=== PATIENT | female | born 1965 | race African-American/Black ===

== ENCOUNTER 2020-02-24 07:12 | Outpatient (REF) | payer MEDICARE, MEDICAID, SELFPAY ==
[2020-02-24 11:37] LABS: Estimated Average Glucose 154 mg/dL
[2020-02-24 12:07] LABS: Creatinine Urine 124.05 mg/dL; Microalbum/Creatinine Ratio Ur 152.3 ug/mg cr
[2020-02-24 12:09] LABS: Alanine Aminotransferase 20 U/L (0-31); Albumin Level 4.4 g/dL (3.5-5.0); Alkaline Phosphatase 54 U/L (39-117); Anion Gap 14 (12-20); Aspartate Amino Transferase 19 U/L (5-31); Bilirubin Total 0.5 mg/dL (0.0-1.0); Blood Urea Nitrogen 24 mg/dL (9-16); Calcium 9.4 mg/dL (8.4-10.2); Carbon Dioxide 27 mmol/L (22-29); Chloride 106 mmol/L (96-108); Cholesterol 135 mg/dL; Estimated Glomerular Filt Rate 42; Glucose Fasting 130 mg/dL (60-99); HDL Cholesterol 42 mg/dL; LDL Cholesterol Calculated 67 mg/dl; Potassium 4.6 mmol/l (3.3-5.1); Sodium 142 mmol/L (135-145); Total Protein 7.3 g/dL (6.5-8.0); Triglycerides 132 mg/dL
== END 2020-02-24 07:13 | disposition home or self-care (01) ==
LOC: HO.HMGCLDS 07:12
PROVIDERS: PCP Internal Medicine; Visit Provider Internal Medicine
DX: E03.9 Hypothyroidism, unspecified (principal); E11.9 Type 2 diabetes mellitus without complications; I10 Essential (primary) hypertension
CPT/HCPCS: 80053; 80061; 82043; 83036

== ENCOUNTER 2020-05-02 10:07 | Outpatient (REF) | payer MEDICARE, MEDICAID, SELFPAY ==
[2020-05-02 11:43] LABS: Glucose Urine UA NEG (NEG); Leukocyte Esterase Urine 3+ (NEG); Nitrite Urine POS (NEG); Specific Gravity - Urine 1.025 (1.005-1.025); Urine Blood 3+ (NEG); Urine Ketones NEG (NEG); Urine Protein 1+ MG/DL (NEG-TRACE)
[2020-05-02 11:46] LABS: Appearance Urine CLOUDY; Color Urine YELLOW
[2020-05-02 12:05] LABS: Bacteria Urine 3+ /LPF; Squamous Epithelial Cell Urine 1+ /LPF
== END 2020-05-02 10:08 | disposition home or self-care (01) ==
LOC: HO.HMGCLDS 10:07
PROVIDERS: PCP Internal Medicine; Visit Provider Internal Medicine
DX: R30.0 Dysuria (principal); D50.9 Iron deficiency anemia, unspecified; E03.9 Hypothyroidism, unspecified; I10 Essential (primary) hypertension; E11.9 Type 2 diabetes mellitus without complications
CPT/HCPCS: 81001; 87086; 87088; 87186

== ENCOUNTER 2020-07-13 12:13 | Outpatient (REF) | payer MEDICARE, MEDICAID, SELFPAY ==
[2020-07-13 13:49] LABS: Glucose Urine UA NEG (NEG); Leukocyte Esterase Urine 3+ (NEG); Nitrite Urine NEG (NEG); PH 5.5 (5.0-8.0); Specific Gravity - Urine 1.025 (1.005-1.025); Urine Blood 2+ (NEG); Urine Ketones NEG (NEG); Urine Protein 1+ MG/DL (NEG-TRACE)
[2020-07-13 13:58] LABS: Appearance Urine CLOUDY; Color Urine YELLOW
[2020-07-13 14:09] LABS: Bacteria Urine 3+ /LPF; Squamous Epithelial Cell Urine TRACE /LPF; WBC Urine 50-75 /HPF (0-4)
== END 2020-07-13 12:14 | disposition home or self-care (01) ==
LOC: HO.LAB 12:13
PROVIDERS: PCP Internal Medicine; Visit Provider Urology
DX: R30.0 Dysuria (principal)
CPT/HCPCS: 81001; 87086; 87088; 87186

== ENCOUNTER 2020-07-18 08:45 | Outpatient (REF) | payer MEDICARE, MEDICAID, SELFPAY ==
[2020-07-18 11:13] LABS: MANUAL DIFF FLAG NO
[2020-07-18 11:42] LABS: Glucose Urine UA NEG (NEG); Leukocyte Esterase Urine 2+ (NEG); Nitrite Urine NEG (NEG); PH 5.5 (5.0-8.0); Specific Gravity - Urine >= 1.030 (1.005-1.025); UACC Culture Trigger YES; Urine Blood 3+ (NEG); Urine Ketones NEG (NEG); Urine Protein 1+ MG/DL (NEG-TRACE)
[2020-07-18 11:43] LABS: Basophils Percent Auto 0.5 % (0-2); Eosinophils Absolute Auto 0.1 X10*3/uL (0.0-0.4); Eosinophils Percent Auto 3.5 % (0-4); Hematocrit 36.1 % (37-47); Hemoglobin 11.6 g/dl (12.0-16.0); Imm Gran Abs Auto 0.02 X10*3/uL (0.00-0.03); Imm Gran Pct Auto 0.5 % (0.0-0.4); Lymphocytes Absolute Auto 0.9 X10*3/uL (1.2-4.9); Lymphocytes Percent Auto 23.4 % (20-40); Mean Corpuscular HGB Conc 32.1 g/dl (31.0-35.0); Mean Corpuscular Hemoglobin 31.1 pg (27.0-33.0); Mean Corpuscular Volume 96.8 fL (80-98); Mean Platelet Volume 10.8 fL (9.4-12.3); Monocytes Absolute Auto 0.5 X10*3/uL (0.1-1.2); Monocytes Percent Auto 11.5 % (2-11); Neutrophils Absolute Auto 2.4 X10*3/uL (2.0-8.3); Neutrophils Percent Auto 60.6 % (45-73); Platelet Count 284 X10*3/uL (160-400); Red Blood Count 3.73 X10*6/uL (4.20-5.50); Red Cell Distribution Width 12.4 % (11.0-16.0)
[2020-07-18 11:44] LABS: Appearance Urine CLOUDY; Color Urine YELLOW
[2020-07-18 11:49] LABS: Amorphous Sediment Urine 1+ /LPF; Bacteria Urine 1+ /LPF; Mucus Urine 2+ /LPF; Squamous Epithelial Cell Urine 1+ /LPF; UACC CULT YES; WBC Urine TNTC /HPF (0-4)
[2020-07-18 11:55] LABS: Alanine Aminotransferase 21 U/L (0-31); Albumin Level 4.4 g/dL (3.5-5.0); Alkaline Phosphatase 67 U/L (39-117); Anion Gap 15 (12-20); Aspartate Amino Transferase 21 U/L (5-31); Bilirubin Total 0.4 mg/dL (0.0-1.0); Blood Urea Nitrogen 18 mg/dL (9-16); Calcium 9.2 mg/dL (8.4-10.2); Carbon Dioxide 27 mmol/L (22-29); Chloride 106 mmol/L (96-108); Cholesterol 118 mg/dL; Estimated Glomerular Filt Rate 49; Glucose Fasting 116 mg/dL (60-99); HDL Cholesterol 33 mg/dL; Iron 54 mcg/dL (30-160); LDL Cholesterol Calculated 59 mg/dl; Percent Iron Saturation 16 % (15-50); Potassium 4.6 mmol/L (3.3-5.1); Sodium 143 mmol/L (135-145); Total Iron Binding Capacity 337 mcg/dL (228-428); Total Protein 7.4 g/dL (6.5-8.0); Triglycerides 130 mg/dL; Unsaturated Iron Binding 283 ug/dL
[2020-07-18 11:58] LABS: TSH reflex Free T4 0.75 uIU/mL (0.32-4.0)
[2020-07-18 12:27] LABS: Uric Acid 5.3 mg/dL (2.4-5.7)
== END 2020-07-18 08:46 | disposition home or self-care (01) ==
LOC: HO.HMGCLDS 08:45
PROVIDERS: PCP Internal Medicine; Visit Provider Internal Medicine
DX: D50.9 Iron deficiency anemia, unspecified (principal); R30.0 Dysuria; E03.9 Hypothyroidism, unspecified; I10 Essential (primary) hypertension; E11.9 Type 2 diabetes mellitus without complications
CPT/HCPCS: 36415; 80053; 80061; 81001; 83540; 84443; 84550; 85025; 87086; 87088; 87186

== ENCOUNTER 2020-11-25 09:59 | Outpatient (REF) | payer MEDICARE, MEDICAID, SELFPAY ==
[2020-11-25 11:31] LABS: Glucose Urine UA NEG (NEG); Leukocyte Esterase Urine 2+ (NEG); Nitrite Urine POS (NEG); PH 5.5 (5.0-8.0); Specific Gravity - Urine 1.025 (1.005-1.025); UACC Culture Trigger YES; Urine Blood 3+ (NEG); Urine Ketones 5 MG/DL (NEG); Urine Protein 2+ MG/DL (NEG-TRACE)
[2020-11-25 11:41] LABS: Appearance Urine TURBID; Color Urine BROWN
[2020-11-25 11:43] LABS: Bacteria Urine 3+ /LPF; Squamous Epithelial Cell Urine 1+ /LPF; WBC Urine TNTC /HPF (0-4)
== END 2020-11-25 10:00 | disposition home or self-care (01) ==
LOC: HO.HMGCLDS 09:59
PROVIDERS: PCP Internal Medicine; Visit Provider Internal Medicine
DX: R31.9 Hematuria, unspecified (principal)
CPT/HCPCS: 81001; 81003; 87086; 87088; 87186

== ENCOUNTER 2020-12-12 12:15 | Outpatient (REF) | payer MEDICARE, MEDICAID, SELFPAY ==
--- NOTE | ~2020-12-12 | XR_ITS ---
EXAMINATION: LEFT FOOT, LEFT KNEE. LEFT TIBIA AND FIBULA. CLINICAL INFORMATION: Injury. Left foot, left tibia and fibula and left knee pain. COMPARISON: None TECHNIQUE: 3 views left foot, 2 views left tibia and fibula. 3 knee 4 views. FINDINGS: Left foot: There is no visible acute fracture, dislocation or subluxation seen. Ankle mortise and subtalar joints are normal. There is a small calcaneal heel spur. There is mild distal dorsal foot soft tissue swelling. Left tibia and fibula: There is no visible acute fracture, dislocation or subluxation seen. The soft tissues are normal. Left knee: There is mild reduction in the medial and the patellofemoral compartment joint space with periarticular spurring. No visible acute fracture, dislocation or lytic process. There is mild suprapatellar joint effusion. XR/XR knee LT 4V IMPRESSION: There is a small calcaneal spur. Minimal distal dorsal foot soft tissue swelling. No acute fractures seen. Unremarkable left tibia and fibula. Mild degenerative changes medial and patellofemoral compartments left knee.
--- NOTE | ~2020-12-12 | XR_ITS ---
EXAMINATION: LEFT FOOT, LEFT KNEE. LEFT TIBIA AND FIBULA. CLINICAL INFORMATION: Injury. Left foot, left tibia and fibula and left knee pain. COMPARISON: None TECHNIQUE: 3 views left foot, 2 views left tibia and fibula. 3 knee 4 views. FINDINGS: Left foot: There is no visible acute fracture, dislocation or subluxation seen. Ankle mortise and subtalar joints are normal. There is a small calcaneal heel spur. There is mild distal dorsal foot soft tissue swelling. Left tibia and fibula: There is no visible acute fracture, dislocation or subluxation seen. The soft tissues are normal. Left knee: There is mild reduction in the medial and the patellofemoral compartment joint space with periarticular spurring. No visible acute fracture, dislocation or lytic process. There is mild suprapatellar joint effusion. XR/XR tibia fibula LT 2V IMPRESSION: There is a small calcaneal spur. Minimal distal dorsal foot soft tissue swelling. No acute fractures seen. Unremarkable left tibia and fibula. Mild degenerative changes medial and patellofemoral compartments left knee.
--- NOTE | ~2020-12-12 | XR_ITS ---
EXAMINATION: LEFT FOOT, LEFT KNEE. LEFT TIBIA AND FIBULA. CLINICAL INFORMATION: Injury. Left foot, left tibia and fibula and left knee pain. COMPARISON: None TECHNIQUE: 3 views left foot, 2 views left tibia and fibula. 3 knee 4 views. FINDINGS: Left foot: There is no visible acute fracture, dislocation or subluxation seen. Ankle mortise and subtalar joints are normal. There is a small calcaneal heel spur. There is mild distal dorsal foot soft tissue swelling. Left tibia and fibula: There is no visible acute fracture, dislocation or subluxation seen. The soft tissues are normal. Left knee: There is mild reduction in the medial and the patellofemoral compartment joint space with periarticular spurring. No visible acute fracture, dislocation or lytic process. There is mild suprapatellar joint effusion. XR/XR foot LT min 3V IMPRESSION: There is a small calcaneal spur. Minimal distal dorsal foot soft tissue swelling. No acute fractures seen. Unremarkable left tibia and fibula. Mild degenerative changes medial and patellofemoral compartments left knee.
== END 2020-12-12 12:16 | disposition home or self-care (01) ==
LOC: HO.HMGCX 12:15
PROVIDERS: PCP Internal Medicine; Visit Provider Nurse Practitioner Family
DX: S99.922D Unspecified injury of left foot, subsequent encounter (principal); S89.92XD Unspecified injury of left lower leg, subsequent encounter
CPT/HCPCS: 73564; 73590; 73630

== ENCOUNTER 2021-03-02 11:24 | Outpatient (REF) | payer MEDICARE, MEDICAID, SELFPAY ==
[2021-03-02 14:04] LABS: Hematocrit 34.4 % (37-47); Mean Corpuscular Hemoglobin 29.9 pg (27.0-33.0); Mean Corpuscular Volume 93.5 fL (80-98); Mean Platelet Volume 10.7 fL (9.4-12.3); Platelet Count 316 X10*3/uL (160-400); Red Blood Count 3.68 X10*6/uL (4.20-5.50); Red Cell Distribution Width 12.7 % (11.0-16.0); White Blood Count 6.6 X10*3/uL (4.8-10.8)
[2021-03-02 14:11] LABS: Estimated Average Glucose 151 mg/dL; Hemoglobin A1c % 6.9 %
[2021-03-02 14:22] LABS: Alanine Aminotransferase 19 U/L (0-31); Albumin Level 4.2 g/dL (3.5-5.0); Alkaline Phosphatase 60 U/L (39-117); Anion Gap 14 (12-20); Aspartate Amino Transferase 20 U/L (5-31); Bilirubin Total 0.5 mg/dL (0.0-1.0); Blood Urea Nitrogen 15 mg/dL (9-16); Calcium 9.6 mg/dL (8.4-10.2); Carbon Dioxide 24 mmol/L (22-29); Chloride 110 mmol/L (96-108); Cholesterol 114 mg/dL; Estimated Glomerular Filt Rate 54; Glucose Fasting 105 mg/dL (60-99); HDL Cholesterol 34 mg/dL; LDL Cholesterol Calculated 59 mg/dl; Potassium 4.1 mmol/L (3.3-5.1); Sodium 144 mmol/L (135-145); Total Protein 7.2 g/dL (6.5-8.0); Triglycerides 107 mg/dL
[2021-03-02 14:44] LABS: Vitamin D 25-OH Total 60.5 ng/mL (>30)
[2021-03-02 16:54] LABS: Creatinine Urine 127.43 mg/dL; Microalbum/Creatinine Ratio Ur 207.1 ug/mg cr
== END 2021-03-02 11:25 | disposition home or self-care (01) ==
LOC: HO.HMGCLDS 11:24
PROVIDERS: PCP Internal Medicine; Visit Provider Internal Medicine
DX: I12.9 Hypertensive chronic kidney disease with stage 1 through stage 4 chronic kidney disease, or unspecified chronic kidney disease (principal); N18.30 Chronic kidney disease, stage 3 unspecified; E11.22 Type 2 diabetes mellitus with diabetic chronic kidney disease; E78.5 Hyperlipidemia, unspecified
CPT/HCPCS: 36415; 80053; 80061; 82043; 82306; 83036; 85027

== ENCOUNTER 2021-07-07 07:00 | Day surgery (SDC) | payer MEDICARE, MEDICAID, SELFPAY ==
--- NOTE | 2021-07-06 10:02 | HO.ANESPROP2 ---
Documented by User: Kati Salazar NP 07/06/21 10:03 HPI - Anesthesia Eval Consult details Narrative: 56yo F for Colonoscopy Recent R shoulder sprain *Multiple Med Allergies* PMFSH Active Problems Active Problems: All Active Problems (Updated 05/19/21 @ 13:58 by Denisse Tripp, RN) Toe injury (Acute) Leg injury (Acute) Knee injury (Acute) Fall (Acute) Overweight (Acute) Annual physical exam (Acute) Normal Pap smear (Acute) Hematuria (Acute) Hypothyroidism (Acute) CKD (chronic kidney disease), stage III (Acute) Diabetes (Acute) Hypertension (Acute) Hyperlipidemia (Acute) Nephrolithiasis (Acute) Dysuria (Acute) Past Medical History Medical History (Updated 07/07/21 @ 07:21 by Lamar Ding, RN) Annual physical exam Arthritis Back pain CKD (chronic kidney disease), stage III Diabetes Dysuria Fibromyalgia Hematuria Hepatitis C History of mammogram History of MRSA infection Hx of hepatitis C Hyperlipidemia Hypertension Hypothyroidism Iron deficiency anemia Nephrolithiasis Normal Pap smear On beta evita at home Overweight Restless leg syndrome Family History Family History Father No problems noted. Mother HTN (hypertension) Diabetes mellitus Maternal Grandmother HTN (hypertension) Diabetes mellitus Stroke Surgical History Surgical History H/O colonoscopy History of kidney stones Hx of cholecystectomy Social History Social History Housing: House Alcohol intake: never Patient Tobacco Use Status: Never used Tobacco e-Cigarette/Vaping Use: Never Used Use of substances other than those prescribed or required for medical reasons: No Are you DNR?: No Advance Directives: No Advance Directives Information Provided: Yes Current occupational status: disabled Meds Allergies Allergy/AdvReac Type Severity Reaction Status Date / Time liraglutide [From VICTOZA] Allergy Intermediate VOMITING Verified 07/07/21 07:19 carvedilol Allergy Unknown doesn't Verified 07/07/21 07:[address] it makes her feel Sulfa (Sulfonamide Allergy Unknown vomiting Verified 07/07/21 07:19 Antibiotics) sulfamethoxazole Allergy Unknown VOMITIMG Verified 07/07/21 07:19 [From BACTRIM] trimethoprim [From BACTRIM] Allergy Unknown VOMITIMG Verified 07/07/21 07:19 amlodipine AdvReac Unknown Feet Verified 07/07/21 07:19 swelling clonidine AdvReac Unknown Dry mouth Verified 07/07/21 07:19 Home Medications Medication Instructions Recorded Confirmed Last Taken Type aspirin 81 mg tablet,delayed 81 mg PO DAILY 04/20/20 05/19/21 Unknown History release docusate sodium 100 mg capsule 200 mg PO BEDTIME 04/20/20 05/19/21 Unknown History ferrous sulfate 325 mg (65 mg 325 mg PO DAILY 04/20/20 05/19/21 Unknown History iron) tablet insulin glargine 100 unit/mL (3 35 unit SUBCUT DAILY 04/20/20 05/19/21 Unknown History mL) subcutaneous pen metformin 500 mg tablet,extended 1,000 mg PO BID 04/20/20 05/19/21 Unknown History release 24 hr estradiol 10 mcg vaginal tablet 10 mcg VAGINAL 2XW 08/24/20 05/19/21 Unknown History methenamine hippurate 1 gram tablet 1 g PO QAM 08/24/20 05/19/21 Unknown History blood sugar diagnostic #10 ea 11/25/20 03/01/21 Unknown History pen needle, diabetic 31 gauge x #50 ea 11/25/20 03/01/21 Unknown History 07/26 Exam Exam Date and Time: July 06, 2021 1002 Pertinent Lab Results Pertinent Lab Results: Laboratory Tests 03/02/21 03/02/21 11:30 11:30 WBC 6.6 Hgb 11.0 L Hct 34.4 L Plt Count 316 Sodium 144 Potassium 4.1 Chloride 110 H Carbon Dioxide 24 BUN 15 Creatinine 1.06 Assessment and Plan Assessment Anesthesia Assessment: Chart Reviewed Documented by User: Ashish Hooks MD 07/07/21 08:16 [facility] Past Medical History Medical History (Updated 07/07/21 @ 07:21 by Lamar Ding RN) Annual physical exam Arthritis Back pain CKD (chronic kidney disease), stage III Diabetes Dysuria Fibromyalgia Hematuria Hepatitis C History of mammogram History of MRSA infection Hx of hepatitis C Hyperlipidemia Hypertension Hypothyroidism Iron deficiency anemia Nephrolithiasis Normal Pap smear On beta evita at home Overweight Restless leg syndrome Patient : No Family History Family History Father No problems noted. Mother HTN (hypertension) Diabetes mellitus Maternal Grandmother HTN (hypertension) Diabetes mellitus Stroke Family history of problems with anesthesia: No Surgical History Surgical History H/O colonoscopy History of kidney stones Hx of cholecystectomy History of Problems with Anesthesia: No Social History Social History Housing: House Alcohol intake: never Patient Tobacco Use Status: Never used Tobacco e-Cigarette/Vaping Use: Never Used Use of substances other than those prescribed or required for medical reasons: No Are you DNR?: No Advance Directives: No Advance Directives Information Provided: Yes Current occupational status: disabled Meds Allergies Allergy/AdvReac Type Severity Reaction Status Date / Time liraglutide [From VICTOZA] Allergy Intermediate VOMITING Verified 07/07/21 07:19 carvedilol Allergy Unknown doesn't Verified 07/07/21 07:[address] it makes her feel Sulfa (Sulfonamide Allergy Unknown vomiting Verified 07/07/21 07:19 Antibiotics) sulfamethoxazole Allergy Unknown VOMITIMG Verified 07/07/21 07:19 [From BACTRIM] trimethoprim [From BACTRIM] Allergy Unknown VOMITIMG Verified 07/07/21 07:19 amlodipine AdvReac Unknown Feet Verified 07/07/21 07:19 swelling clonidine AdvReac Unknown Dry mouth Verified 07/07/21 07:19 Home Medications Medication Instructions Recorded Confirmed Last Taken Type aspirin 81 mg tablet,delayed 81 mg PO DAILY 04/20/20 05/19/21 Unknown History release docusate sodium 100 mg capsule 200 mg PO BEDTIME 04/20/20 05/19/21 Unknown History ferrous sulfate 325 mg (65 mg 325 mg PO DAILY 04/20/20 05/19/21 Unknown History iron) tablet insulin glargine 100 unit/mL (3 35 unit SUBCUT DAILY 04/20/20 05/19/21 Unknown History mL) subcutaneous pen metformin 500 mg tablet,extended 1,000 mg PO BID 04/20/20 05/19/21 Unknown History release 24 hr estradiol 10 mcg vaginal tablet 10 mcg VAGINAL 2XW 08/24/20 05/19/21 Unknown History methenamine hippurate 1 gram tablet 1 g PO QAM 08/24/20 05/19/21 Unknown History blood sugar diagnostic #10 ea 11/25/20 03/01/21 Unknown History pen needle, diabetic 31 gauge x #50 ea 11/25/20 03/01/21 Unknown History 07/26 Exam Airway Mallampati Class: I TM Dist: >3cm Neck ROM: Full Loose/Missing/Broken Teeth: No Heart: ok Lungs: ok Assessment and Plan Final Anesthetic Review Family History of Problems with Anesthesia: No History of Problems with Anesthesia: No NPO: Yes ASA Class: II Final Preanesthetic Review: No Changes in Pt Med Stat, Meds/Allgs Chart Reviewed, Consent Obtained/Reviewed and Anes Risks/Benef Reviewed Patient Risk: Intermediate Procedure Risk: Low Anesthetic Plan Anesthetic Plan: MAC: and Agree w/ Assess. and Plan Disposition: Standard PACU
[2021-07-07 07:25] VITALS: BMI 38.0
[2021-07-07 07:43] VITALS: BP 132/68; PULSE 68; RESP 16; TEMP 36.4; O2SAT 99
[2021-07-07] MEDS: Lactated Ringers 1,000 ML 100 ML IVCONT (08:00)
--- NOTE | 2021-07-07 08:12 | MHC.SHP ---
Pre-Procedural Eval Section A Date of Service: 07/07/21 Section B Chief Complaint: change in habits Details of Present Illness: see h&p no changes Relevant Family History (Specify if Yes): No Relevant Social History: None Present Medications: see Short Stay [facility] assessment Medical History: No relevant PMH History of Previous Operations: No relevant previous surgery Allergies: Allergies Allergy/AdvReac Type Severity Reaction Status Date / Time liraglutide [From VICTOZA] Allergy Intermediate VOMITING Verified 07/07/21 07:19 carvedilol Allergy Unknown doesn't Verified 07/07/21 07:[address] it makes her feel Sulfa (Sulfonamide Allergy Unknown vomiting Verified 07/07/21 07:19 Antibiotics) sulfamethoxazole Allergy Unknown VOMITIMG Verified 07/07/21 07:19 [From BACTRIM] trimethoprim [From BACTRIM] Allergy Unknown VOMITIMG Verified 07/07/21 07:19 amlodipine AdvReac Unknown Feet Verified 07/07/21 07:19 swelling clonidine AdvReac Unknown Dry mouth Verified 07/07/21 07:19 Review of Systems Sugical H&P ROS: Negative: Constitution, Cardiovascular, Respiratory, Neurological, Psychiatric, Hem-Onc, Allergic/Immunologic, Gastrointestinal, Genitourinary, Musculoskeletal, Integumentary, Endocrine and Eyes/Ears/Nose/Throat Exam Surgical H&P Exam: Normal: HEENT, Normal: Heart, Normal: Lungs, Normal: Extremities, Normal: Abdomen, Normal: Skin and Normal: Neurological Plan Diagnosis/Plan: Unchanged I have reviewed the history and physical and performed a pertinent physical examination on my patient. No changes have occurred unless specified.
[2021-07-07 08:29] LABS: Glucose, Whole Blood 131 mg/dL (60-115)
--- NOTE | 2021-07-07 09:03 | PM.OP ---
Brief Operative Note Date of Service: 07/07/21 Pre-op diagnosis: change in bowel habits Post-op diagnosis: same (colon polyps) Surgeon: Vargas García Anesthesia: MAC Was an [employer] used for this Procedure?: No Estimated blood loss (mL): 5 Pathology: other (bxs, ti, r colon rectosigmoid, polyps 20cm and rectum.) Condition: stable Disposition: PACU
[2021-07-07 09:13] VITALS: BP 116/66; PULSE 61; RESP 16; TEMP 36.3; O2SAT 100
--- NOTE | 2021-07-07 09:51 | OP_ITS ---
SURGEON: Vargas García MD INDICATIONS: Change in bowel habits. PREOPERATIVE DIAGNOSIS: POSTOPERATIVE DIAGNOSIS: PROCEDURE PERFORMED: Colonoscopy to the terminal ileum with biopsy and snare polypectomy. ESTIMATED BLOOD LOSS: COMPLICATIONS: ANESTHESIA: ASSISTANTS: SPECIMENS: MEDICATIONS: Monitored anesthesia care. DESCRIPTION OF PROCEDURE: History and physical were performed. The risks and benefits of the procedure were explained to the patient. Informed consent was obtained and the patient placed in the left lateral decubitus position. A digital rectal exam was performed and was found to be normal. The Olympus pediatric video colonoscope was introduced into the rectum and advanced to the cecum without difficulty. The cecum was identified by transillumination, palpation, and identification of the ileocecal valve. Examination was performed. The scope was removed. She tolerated the procedure well and was transferred to recovery area in stable condition. FINDINGS: The terminal ileum was normal. The visualized colonic mucosa was normal. The quality of the prep was good. There was moderate sigmoid diverticulosis. There was no evidence of colitis or Crohn disease. A single polyp at the 20 cm li measuring 10 mm was removed with a snare and recovered via suction. A rectal polyp measuring less than 5 mm was removed with biopsy forceps. Random biopsies were obtained from the terminal ileum, the right colon, and the rectosigmoid. Retroflexed examination showed internal hemorrhoids that were moderate in size. The quality of the prep was good. IMPRESSION: Colon polyps. RECOMMENDATION: Follow up the biopsy results. MD KENNEDY Friedman/CECILL / [id number]
== END 2021-07-07 09:38 | disposition home or self-care (01) ==
PROVIDERS: PCP Internal Medicine; Visit Provider Internal Medicine Gastroenterology
PROC: 0DJD8ZZ Inspection of Lower Intestinal Tract, Via Natural or Artificial Opening Endoscopic (ICD-10-PCS; CPT 45378; principal; 2021-07-07 08:40)
DX: R19.4 Change in bowel habit (principal); Z86.010 Personal history of colon polyps; K51.40 Inflammatory polyps of colon without complications; K62.1 Rectal polyp; K57.30 Diverticulosis of large intestine without perforation or abscess without bleeding; K64.8 Other hemorrhoids; K58.9 Irritable bowel syndrome, unspecified; Z87.19 Personal history of other diseases of the digestive system; B18.2 Chronic viral hepatitis C; I25.10 Atherosclerotic heart disease of native coronary artery without angina pectoris; E11.22 Type 2 diabetes mellitus with diabetic chronic kidney disease; I12.9 Hypertensive chronic kidney disease with stage 1 through stage 4 chronic kidney disease, or unspecified chronic kidney disease; N18.30 Chronic kidney disease, stage 3 unspecified; Z79.4 Long term (current) use of insulin; Z79.82 Long term (current) use of aspirin; Z79.899 Other long term (current) drug therapy; Z88.2 Allergy status to sulfonamides; Z88.8 Allergy status to other drugs, medicaments and biological substances; Z87.442 Personal history of urinary calculi
CPT/HCPCS: 45385; 45380; 82947; 88305; J3010

== ENCOUNTER 2021-09-28 09:43 | Outpatient (REF) | payer MEDICARE, MEDICAID, SELFPAY ==
[2021-09-28 11:31] LABS: Hematocrit 34.1 % (37.0-47.0); Hemoglobin 10.5 g/dl (12.0-16.0); Mean Corpuscular HGB Conc 30.8 g/dl (31.0-35.0); Mean Corpuscular Hemoglobin 29.5 pg (27.0-33.0); Mean Corpuscular Volume 95.8 fL (80.0-98.0); Mean Platelet Volume 9.3 fL (9.4-12.3); Platelet Count 391 X10*3/uL (160-400); Red Blood Count 3.56 X10*6/uL (4.20-5.50); Red Cell Distribution Width 13.6 % (11.0-16.0); White Blood Count 9.2 X10*3/uL (4.8-10.8)
[2021-09-28 12:10] LABS: Alanine Aminotransferase 26 U/L (0-31); Alkaline Phosphatase 71 U/L (39-117); Anion Gap 16 (12-20); Aspartate Amino Transferase 16 U/L (5-31); Bilirubin Total 0.6 mg/dL (0.0-1.0); Blood Urea Nitrogen 18 mg/dL (9-16); C Reactive Protein 0.78 mg/dL (< or = 0.50); Calcium 9.9 mg/dL (8.4-10.2); Carbon Dioxide 24 mmol/L (22-29); Chloride 106 mmol/L (96-108); Estimated Glomerular Filt Rate 42; Glucose Random 98 mg/dL (60-115); Sodium 141 mmol/L (135-145); Total Protein 7.6 g/dL (6.5-8.0)
== END 2021-09-28 09:44 | disposition home or self-care (01) ==
LOC: HO.HMGCLDS 09:43
PROVIDERS: PCP Internal Medicine; Visit Provider Internal Medicine
DX: I12.9 Hypertensive chronic kidney disease with stage 1 through stage 4 chronic kidney disease, or unspecified chronic kidney disease (principal); N18.30 Chronic kidney disease, stage 3 unspecified; E11.22 Type 2 diabetes mellitus with diabetic chronic kidney disease; R19.7 Diarrhea, unspecified
CPT/HCPCS: 36415; 80053; 85027; 86140

== ENCOUNTER 2021-09-29 10:40 | Outpatient (REF) | payer MEDICARE, MEDICAID, SELFPAY ==
[2021-09-29 16:51] LABS: CDiff Gene PCR NEGATIVE (Negative)
== END 2021-09-29 10:41 | disposition home or self-care (01) ==
LOC: HO.HMGCLNP 10:40
PROVIDERS: Visit Provider Internal Medicine
DX: I12.9 Hypertensive chronic kidney disease with stage 1 through stage 4 chronic kidney disease, or unspecified chronic kidney disease (principal); N18.30 Chronic kidney disease, stage 3 unspecified; E11.22 Type 2 diabetes mellitus with diabetic chronic kidney disease; R19.7 Diarrhea, unspecified
CPT/HCPCS: 87045; 87046; 87493

== ENCOUNTER 2021-11-22 09:59 | Outpatient (REF) | payer MEDICARE, MEDICAID, SELFPAY ==
[2021-11-22 11:33] LABS: Hematocrit 35.8 % (37.0-47.0); Hemoglobin 11.3 g/dl (12.0-16.0); Mean Corpuscular HGB Conc 31.6 g/dl (31.0-35.0); Mean Corpuscular Hemoglobin 29.8 pg (27.0-33.0); Mean Corpuscular Volume 94.5 fL (80.0-98.0); Mean Platelet Volume 11.6 fL (9.4-12.3); Platelet Count 276 X10*3/uL (160-400); Red Blood Count 3.79 X10*6/uL (4.20-5.50); Red Cell Distribution Width 13.1 % (11.0-16.0); White Blood Count 8.7 X10*3/uL (4.8-10.8)
[2021-11-22 11:38] LABS: Estimated Average Glucose 134 mg/dL; Hemoglobin A1c % 6.3 %
[2021-11-22 11:46] LABS: Alanine Aminotransferase 11 U/L (0-31); Albumin Level 4.5 g/dL (3.5-5.0); Alkaline Phosphatase 49 U/L (39-117); Anion Gap 13 (12-20); Aspartate Amino Transferase 14 U/L (5-31); Bilirubin Total 0.5 mg/dL (0.0-1.0); Blood Urea Nitrogen 23 mg/dL (9-16); Calcium 10.3 mg/dL (8.4-10.2); Carbon Dioxide 25 mmol/L (22-29); Chloride 109 mmol/L (96-108); Cholesterol 133 mg/dL; Estimated Glomerular Filt Rate 42; Glucose Fasting 93 mg/dL (60-99); HDL Cholesterol 42 mg/dL; Iron 45 mcg/dL (30-160); LDL Cholesterol Calculated 69 mg/dl; Percent Iron Saturation 13 % (15-50); Potassium 4.8 mmol/L (3.3-5.1); Sodium 142 mmol/L (135-145); Total Iron Binding Capacity 345 mcg/dL (228-428); Total Protein 7.5 g/dL (6.5-8.0); Triglycerides 111 mg/dL; Unsaturated Iron Binding 300 ug/dL
[2021-11-22 11:58] LABS: Creatinine Urine 112.02 mg/dL; Microalbum/Creatinine Ratio Ur 58.9 ug/mg cr
== END 2021-11-22 10:00 | disposition home or self-care (01) ==
LOC: HO.HMGCLDS 09:59
PROVIDERS: PCP Internal Medicine; Visit Provider Internal Medicine
DX: I12.9 Hypertensive chronic kidney disease with stage 1 through stage 4 chronic kidney disease, or unspecified chronic kidney disease (principal); N18.30 Chronic kidney disease, stage 3 unspecified; E11.22 Type 2 diabetes mellitus with diabetic chronic kidney disease; E78.5 Hyperlipidemia, unspecified
CPT/HCPCS: 36415; 80053; 80061; 82043; 83036; 83540; 85027

== ENCOUNTER 2022-05-24 09:23 | Outpatient (REF) | payer MEDICARE, MEDICAID, SELFPAY ==
[2022-05-24 11:20] LABS: Basophils Percent Auto 0.6 % (0-2); Eosinophils Absolute Auto 0.1 X10*3/uL (0.0-0.4); Eosinophils Percent Auto 2.6 % (0-4); Hematocrit 38.3 % (37.0-47.0); Imm Gran Abs Auto 0.01 X10*3/uL (0.00-0.03); Imm Gran Pct Auto 0.2 % (0.0-0.4); Lymphocytes Absolute Auto 1.8 X10*3/uL (1.2-4.9); Lymphocytes Percent Auto 35.5 % (20-40); MANUAL DIFF FLAG SCAN; Mean Corpuscular HGB Conc 31.3 g/dl (31.0-35.0); Mean Corpuscular Hemoglobin 29.4 pg (27.0-33.0); Mean Corpuscular Volume 93.9 fL (80.0-98.0); Monocytes Absolute Auto 0.4 X10*3/uL (0.1-1.2); Monocytes Percent Auto 8.1 % (2-11); Neutrophils Absolute Auto 2.6 x10*3/uL (2.0-8.3); PLT CLUMP 1; Red Blood Count 4.08 X10*6/uL (4.20-5.50); Red Cell Distribution Width 12.3 % (11.0-16.0); SCAN SMEAR FLAG 1
[2022-05-24 11:43] LABS: Estimated Average Glucose 134 mg/dL; Hemoglobin A1c % 6.3 %
[2022-05-24 11:44] LABS: Platelet Count 197 X10*3/uL (160-400); SLIDE REVIEW VERIFIED; White Blood Count 4.9 X10*3/uL (4.8-10.8)
[2022-05-24 12:42] LABS: Folate 6.9 ng/mL (> or = 4.0); Vitamin B12 1084 pg/mL (200-900)
[2022-05-24 13:17] LABS: Alanine Aminotransferase 16 U/L (0-31); Albumin Level 4.5 g/dL (3.5-5.0); Alkaline Phosphatase 60 U/L (39-117); Anion Gap 11 (12-20); Aspartate Amino Transferase 15 U/L (5-31); Bilirubin Total 0.5 mg/dL (0.0-1.0); Blood Urea Nitrogen 24 mg/dL (9-16); Carbon Dioxide 29 mmol/L (22-29); Chloride 106 mmol/L (96-108); Cholesterol 131 mg/dL; Estimated Glomerular Filt Rate 39; Glucose Fasting 106 mg/dL (60-99); HDL Cholesterol 41 mg/dL; Iron 59 mcg/dL (30-160); LDL Cholesterol Calculated 66 mg/dl; Percent Iron Saturation 18 % (15-50); Sodium 142 mmol/L (135-145); Total Iron Binding Capacity 327 mcg/dL (228-428); Total Protein 7.4 g/dL (6.5-8.0); Triglycerides 120 mg/dL; Unsaturated Iron Binding 268 ug/dL
[2022-05-24 13:17] LABS: Creatinine Urine 148.73 mg/dL; Microalbum/Creatinine Ratio Ur 50.4 ug/mg cr
[2022-05-24 13:36] LABS: TSH reflex Free T4 0.77 uIU/mL (0.32-4.0); Vitamin D 25-OH Total 49.2 ng/mL (>30)
== END 2022-05-24 09:24 | disposition home or self-care (01) ==
LOC: HO.HMGCLDS 09:23
PROVIDERS: PCP Internal Medicine; Visit Provider Internal Medicine
DX: Z00.00 Encounter for general adult medical examination without abnormal findings (principal); I12.9 Hypertensive chronic kidney disease with stage 1 through stage 4 chronic kidney disease, or unspecified chronic kidney disease; E11.22 Type 2 diabetes mellitus with diabetic chronic kidney disease; N18.30 Chronic kidney disease, stage 3 unspecified; E78.5 Hyperlipidemia, unspecified; E03.9 Hypothyroidism, unspecified
CPT/HCPCS: 36415; 80053; 80061; 82043; 82306; 82607; 82746; 83036; 83540; 84443; 85025

== ENCOUNTER 2022-06-07 08:18 | Outpatient (REF) | payer MEDICARE, MEDICAID, SELFPAY ==
--- NOTE | ~2022-06-07 | MM_ITS ---
EXAMINATION: BONE DENSITOMETRY CLINICAL INDICATION: Menopause. COMPARISON: This is the patient's baseline examination. TECHNIQUE: Using a [employer] DXA System (software version: 13.1) manufactured by [employer], dual-energy x-ray absorptiometry was performed of the lumbar spine and left hip. The images are of good technical quality. Summary results are attached. FINDINGS: AP SPINE L1-L2 (excluding L3 and L4): The data of L1-L4 has been changed to exclude the L3 and L4 vertebral bodies, because degenerative sclerosis at these levels may cause overestimation of lumbar spine density. BMD 1.430 g/cm2, Z-score 2.1, T-score 2.2, normal. LEFT FEMUR, NECK: BMD 0.953 g/cm2, Z-score -0.2, T-score -0.6, normal. LEFT FEMUR, TOTAL: BMD 1.077 g/cm2, Z-score 0.6, T-score 0.6, normal. IDENTIFIED RISK FACTORS: Menopause, low calcium intake, renal. HISTORY OF FRACTURE: None listed. MEDICATIONS: Vitamin D. MM/XR DEXA axial skeleton IMPRESSION: 1. DIAGNOSIS: Normal bone density based on the lowest T-score value of -0.6 in the femoral neck applying World Health Organization criteria. 2. 10-YEAR FRACTURE RISK PREDICTION, FRAX: According to the guidelines, FRAX calculation should only be performed on patients in the osteopenia bone density category. Therefore, FRAX was not performed on this patient. 3. Treatment Recommendations: NOF guidelines recommend consideration for treatment in postmenopausal women and men age 50 and older presenting with the following: -A hip or vertebral (clinical or morphometric) fracture. -T-score less than or equal to -2.5 at the femoral neck or spine after appropriate evaluation to exclude secondary causes. -Low bone mass at the hip or spine and a 10-year fracture probability by FRAX of greater than or equal to 3% for hip fracture or greater than or equal to 20% for major osteoporotic fracture based on the [place] adapted WHO algorithm. 4. Other Recommendations: All treatment decisions require clinical judgment and consideration of individual patient factors, including patient preferences, comorbidities, previous drug use, risk factors not captured in the FRAX model (e.g. frailty, falls, vitamin D deficiency, increased bone turnover, interval significant decline in bone density) and possible under or overestimation of fracture risk by FRAX. FUTURE SCAN RECOMMENDATION: People with diagnosed cases of osteoporosis or at high risk for fracture should have regular bone mineral density tests. For patients eligible for Medicare, routine testing is allowed once every 2 years. The testing frequency can be increased to one year for patients who have rapidly progressing disease, those who are receiving or discontinuing medical therapy to restore bone mass, or have additional risk factors.
== END 2022-06-07 08:19 | disposition home or self-care (01) ==
LOC: HO.MAMMO 08:18
PROVIDERS: PCP Internal Medicine; Visit Provider Internal Medicine
DX: Z13.820 Encounter for screening for osteoporosis (principal); Z78.0 Asymptomatic menopausal state
CPT/HCPCS: 77080

== ENCOUNTER 2022-11-22 08:04 | Outpatient (AMB) | payer MEDICARE, MEDICAID, SELFPAY ==
--- NOTE | 2022-11-22 08:08 | MHC.PC.OV ---
Vital Signs 11/22/22 08:09 Height 5 ft 3 in Weight 212 lb BMI 37.6 BP 122/68 Blood Pressure Location Lt brachial Position Sitting Pulse 65 Pulse Source Pulse Oximeter Pulse Oximetry (%) 98 Oxygen Delivery Method Room Air Intake Visit Reasons: Follow up Intake Note: Pt is here today for a follow up visit. Allergies liraglutide [From VICTOZA] Allergy (Intermediate, Verified 11/22/22 08:10) VOMITING carvedilol Allergy (Unknown, Verified 11/22/22 08:10) doesn't like the way it makes her feel Sulfa (Sulfonamide Antibiotics) Allergy (Unknown, Verified 11/22/22 08:10) vomiting sulfamethoxazole [From BACTRIM] Allergy (Unknown, Verified 11/22/22 08:10) VOMITIMG trimethoprim [From BACTRIM] Allergy (Unknown, Verified 11/22/22 08:10) VOMITIMG amlodipine Adverse Reaction (Unknown, Verified 11/22/22 08:10) Feet swelling clonidine Adverse Reaction (Unknown, Verified 11/22/22 08:10) Dry mouth Medication List - Last Reconciled 11/22/22 by Renate Mercado MD aspirin 81 mg PO DAILY atorvastatin 40 mg PO DAILY blood sugar diagnostic As directed cholecalciferol (vitamin D3) 50 mcg PO BEDTIME cyanocobalamin (vitamin B-12) (Vitamin B-12) 1,000 mcg PO DAILY docusate sodium 200 mg PO BEDTIME estradiol 10 mcg vaginal 2XW felodipine ER 5 mg PO DAILY ferrous sulfate 325 mg PO DAILY insulin glargine 35 units subcut DAILY insulin lispro (Humalog KwikPen (U-100) Insulin) 2 To 12 unts before each meal based on sliding scale subcut 3 times a day; 30 days levothyroxine 50 mcg PO DAILY losartan 100 mg PO DAILY metformin ER 1,000 mg PO BID methenamine hippurate 1 g PO QAM metoprolol tartrate 50 mg PO BID pen needle, diabetic As directed Tobacco use date assessed: 11/22/22 Dental Screening Dental Screen Date: 11/22/22 Did you have a dental visit in the last 12 months?: Yes Did you have a dental problem in the last 6 months where you did not have access to dental care?: No Was dental information given to patient?: Patient has dentist HPI Follow up HPI Details Patient presents for the follow-up of type 2 diabetes, hypertension chronic kidney disease, recurrent nephrolithiasis. Patient was treated for UTI 2 weeks ago by Urology and reports recurrent symptoms the last 2 days. Patient denies fever chills nausea vomiting. She complains of vaginal itching consistent with candidiasis. [facility] Medical History (Updated 11/22/22 @ 08:51 by Renate Mercado MD) Annual physical exam Arthritis Back pain CKD (chronic kidney disease), stage III Diabetes Diarrhea Dysuria Fibromyalgia Hematuria Hepatitis C History of mammogram History of MRSA infection Hx of hepatitis C Hyperlipidemia Hypertension Hypothyroidism Iron deficiency anemia Nephrolithiasis Normal Pap smear On beta evita at home Overweight Restless leg syndrome Surgical History (Updated 05/24/22 @ 09:23 by Renate Mercado MD) H/O colonoscopy History of kidney stones Hx of cholecystectomy Family History (Updated 11/22/22 @ 08:13 by Cris Pope Michela) Father No problems noted. Mother HTN (hypertension) Diabetes mellitus Maternal Grandmother HTN (hypertension) Diabetes mellitus Stroke Social History Housing: House Alcohol intake: never Patient Tobacco Use Status: Never used Tobacco e-Cigarette/Vaping Use: Never Used Current occupational status: disabled Cognitive needs: No Hearing needs: No Vision needs: Yes Questionnaire Thrive Questionnaire Date Thrive assessed: 11/22/22 I am a: Patient What is your living situation today?: I have a steady place to live Within the past 12 months, did the food you bought not last and you didn't have the money to get more?: Never true Within the past 12 months, did you worry whether your food would run out before you got money to buy more?: Never true Do you have trouble paying for medicines?: No Do you have trouble getting transportation to medical appointments?: No Do you have trouble paying your heating and electricity bill?: No Do you have trouble taking care of your child, family member or friend?: No Do you have trouble with day-to-day activities such as bathing, preparing meals, shopping, managing finances, etc.?: No Are you currently unemployed and looking for a job?: No Are you interested in more education?: No Please select the resources that you would like help with: None Currently or been in a relationship where the following occur: no concerns reported AUDIT C Alcohol Use Questionnaire (AUDIT-C) 1. How often do you have a drink containing alcohol?: Never 3. How often do you have six or more drinks on one occasion?: Never Total Score: 0 CAROLINA-7 AMB Questionnaire CAROLINA-7 Date CAROLINA - 7 assessed: 11/22/22 Feeling nervous, anxious, or on edge: 0 = Not at all Not being able to stop or control worryin = Not at all Worrying too much about different things: 0 = Not at all Trouble relaxin = Not at all Being so restless that it is hard to sit still: 0 = Not at all Becoming easily annoyed or irritable: 0 = Not at all Feeling afraid as if something awful might happen: 0 = Not at all Total CAROLINA-7 score (0-4 normal; 5-9 mild; 10-14 moderate; 15-21 severe): 0 Source: Developed by Drs. Jacinto Cisneros, Molly Rivas, Keon Ang and colleagues, with an educational wes from [employer]. Review of Systems Const All systems reviewed & are unremarkable except as noted in HPI and below Reports no additional complaints Eyes Reports no additional complaints ENT Reports no additional complaints Card Reports no additional complaints Resp Reports no additional complaints GI Reports no additional complaints Reports no additional complaints Physical exam (Primary Care) Vital Signs: Last Vital Signs Pulse 65 11/22/22 08:09 BP 122/68 11/22/22 08:09 Pulse Ox 98 11/22/22 08:09 Oxygen Delivery Method Room Air 11/22/22 08:09 BMI result Body Mass Index 37.6 Tobacco/Smoking Status: Tobacco use Status Tobacco use date assessed 11/22/22 11/22/22 08:14 Patient Tobacco Use Status Never used Tobacco 11/22/22 08:14 e-Cigarette/Vaping Use Never Used 11/22/22 08:14 Thrive Assessment: Date of Thrive Assessment Date Thrive assessed 11/22/22 11/22/22 08:14 Currently or been in a relationship where the following occur: no concerns reported Const General: no acute distress HENMT Head: Yes normal to inspection General nose exam: Normal external nose present Resp Effort & Inspection: normal respiratory effort Auscultation: clear to auscultation bilaterally Cardio Rhythm: regular rhythm Heart sounds: S1 normal heart sound present and S2 normal heart sound present GI Inspection: Yes normal to inspection Palpation (GI): Soft to palpation Percussion: Yes normal to percussion Auscultation: normal bowel sounds Assessment and Plan Assessment & Plan (1) CKD (chronic kidney disease), stage III: 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 (3) Hypertension: Comment: BP less than 130/80 Code(s): I10 - Essential (primary) hypertension Plan: Continue current medications (4) Hyperlipidemia: Code(s): E78.5 - Hyperlipidemia, unspecified Plan: Continue statin (5) Nephrolithiasis: Comment: Renal US 12/2019 R side multiple stones largest cluster 1.4 cm, L side 0.3 cm, R side multiple cysts, f/u PVU Code(s): N20.0 - Calculus of kidney Plan: Follow-up with urology (6) Dysuria: Code(s): R30.0 - Dysuria Orders: Orders Comprehensive [place]. Panel Fast 6 Months E03.9 - Hypothyroidism, unspecified, E11.9 - Type 2 diabetes mellitus without complications, E78.5 - Hyperlipidemia, unspecified, I10 - Essential (primary) hypertension, N18.30 - Chronic kidney disease, stage 3 unspecified, N20.0 - Calculus of kidney Hemoglobin A1c 6 Months E03.9 - Hypothyroidism, unspecified, E11.9 - Type 2 diabetes mellitus without complications, E78.5 - Hyperlipidemia, unspecified, I10 - Essential (primary) hypertension, N18.30 - Chronic kidney disease, stage 3 unspecified, N20.0 - Calculus of kidney Complete Blood Count Auto Diff 6 Months E03.9 - Hypothyroidism, unspecified, E11.9 - Type 2 diabetes mellitus without complications, E78.5 - Hyperlipidemia, unspecified, I10 - Essential (primary) hypertension, N18.30 - Chronic kidney disease, stage 3 unspecified, N20.0 - Calculus of kidney Lipid Panel 6 Months E03.9 - Hypothyroidism, unspecified, E11.9 - Type 2 diabetes mellitus without complications, E78.5 - Hyperlipidemia, unspecified, I10 - Essential (primary) hypertension, N18.30 - Chronic kidney disease, stage 3 unspecified, N20.0 - Calculus of kidney Microalbumin, Random (w Creat) 6 Months E03.9 - Hypothyroidism, unspecified, E11.9 - Type 2 diabetes mellitus without complications, E78.5 - Hyperlipidemia, unspecified, I10 - Essential (primary) hypertension, N18.30 - Chronic kidney disease, stage 3 unspecified, N20.0 - Calculus of kidney TSH reflex Free T4 6 Months E03.9 - Hypothyroidism, unspecified, E11.9 - Type 2 diabetes mellitus without complications, E78.5 - Hyperlipidemia, unspecified, I10 - Essential (primary) hypertension, N18.30 - Chronic kidney disease, stage 3 unspecified, N20.0 - Calculus of kidney Vitamin D 25-OH Total 6 Months E03.9 - Hypothyroidism, unspecified, E11.9 - Type 2 diabetes mellitus without complications, E78.5 - Hyperlipidemia, unspecified, I10 - Essential (primary) hypertension, N18.30 - Chronic kidney disease, stage 3 unspecified, N20.0 - Calculus of kidney Medications: New fluconazole 150 mg PO Q3D 2 tabs 0RF 2 doses flash glucose sensor (FreeStyle Shakeel 2 Sensor kit) As directed 2 ea 5RF Coding Level of Care Code Est Pt Level 4 (60095) Diagnoses CKD (chronic kidney disease), stage III N18.30 Diabetes E11.9 Hypertension I10 Hyperlipidemia E78.5 Nephrolithiasis N20.0 Dysuria R30.0
[2022-11-22 08:09] VITALS: BP 122/68; PULSE 65; O2SAT 98; BMI 37.6
== END 2022-11-22 08:43 | disposition home or self-care (01) ==
PROVIDERS: Visit Provider Internal Medicine
DX: E11.22 Type 2 diabetes mellitus with diabetic chronic kidney disease (principal); N18.30 Chronic kidney disease, stage 3 unspecified; I12.9 Hypertensive chronic kidney disease with stage 1 through stage 4 chronic kidney disease, or unspecified chronic kidney disease; E78.5 Hyperlipidemia, unspecified; N20.0 Calculus of kidney; R30.0 Dysuria
CPT/HCPCS: 99214

== ENCOUNTER 2023-05-10 06:55 | Outpatient (REF) | payer MEDICARE, MEDICAID, SELFPAY ==
[2023-05-10 11:40] LABS: MANUAL DIFF FLAG NO
[2023-05-10 11:44] LABS: Basophils Percent Auto 0.4 % (0-2); Eosinophils Absolute Auto 0.1 X10*3/uL (0.0-0.4); Hematocrit 36.4 % (37.0-47.0); Hemoglobin 11.8 g/dl (12.0-16.0); Imm Gran Abs Auto 0.03 X10*3/uL (0.00-0.03); Imm Gran Pct Auto 0.4 % (0.0-0.4); Lymphocytes Percent Auto 28.5 % (20-40); Mean Corpuscular HGB Conc 32.4 g/dl (31.0-35.0); Mean Corpuscular Hemoglobin 30.5 pg (27.0-33.0); Mean Corpuscular Volume 94.1 fL (80.0-98.0); Mean Platelet Volume 10.3 fL (9.4-12.3); Monocytes Absolute Auto 0.6 X10*3/uL (0.1-1.2); Monocytes Percent Auto 8.8 % (2-11); Neutrophils Absolute Auto 4.2 x10*3/uL (2.0-8.3); Neutrophils Percent Auto 59.9 % (45-73); Platelet Count 328 X10*3/uL (160-400); Red Blood Count 3.87 X10*6/uL (4.20-5.50); Red Cell Distribution Width 12.6 % (11.0-16.0); White Blood Count 7.1 X10*3/uL (4.8-10.8)
[2023-05-10 12:01] LABS: Estimated Average Glucose 157 mg/dL; Hemoglobin A1c % 7.1 % (<6.0)
[2023-05-10 12:08] LABS: Alanine Aminotransferase 19 U/L (0-31); Albumin Level 4.1 g/dL (3.5-5.0); Alkaline Phosphatase 49 U/L (39-117); Anion Gap 12 (12-20); Aspartate Amino Transferase 19 U/L (5-31); Bilirubin Total 0.3 mg/dL (0.0-1.0); Blood Urea Nitrogen 18 mg/dL (9-16); Calcium 9.8 mg/dL (8.4-10.2); Carbon Dioxide 24 mmol/L (22-29); Chloride 110 mmol/L (96-108); Cholesterol 141 mg/dL (<200); Estimated Glomerular Filt Rate 40; Glucose Fasting 115 mg/dL (60-99); HDL Cholesterol 35 mg/dL (>40); LDL Cholesterol Calculated 64 mg/dL (<100); Potassium 4.3 mmol/L (3.3-5.1); Sodium 142 mmol/L (135-145); Total Protein 7.3 g/dL (6.5-8.0); Triglycerides 212 mg/dL (<150)
[2023-05-10 12:24] LABS: TSH reflex Free T4 0.83 uIU/mL (0.32-4.0); Vitamin D 25-OH Total 76.1 ng/mL (>30)
[2023-05-10 13:05] LABS: Microalbum/Creatinine Ratio Ur 461.7 ug/mg cr (<30)
== END 2023-05-10 06:56 | disposition home or self-care (01) ==
LOC: HO.HMGCLDS 06:55
PROVIDERS: PCP Internal Medicine; Visit Provider Internal Medicine
DX: E03.9 Hypothyroidism, unspecified (principal); E11.9 Type 2 diabetes mellitus without complications; I10 Essential (primary) hypertension; N18.30 Chronic kidney disease, stage 3 unspecified; E78.5 Hyperlipidemia, unspecified; N20.0 Calculus of kidney
CPT/HCPCS: 36415; 80053; 80061; 82043; 82306; 82570; 83036; 84443; 85025

== ENCOUNTER 2023-05-27 08:04 | Outpatient (AMB) | payer MEDICARE, MEDICAID, SELFPAY ==
[2023-05-27 08:06] VITALS: BP 114/64; PULSE 58; O2SAT 100; BMI 36.1
--- NOTE | 2023-05-27 08:06 | A.OFFPC_ITS ---
Vital Signs 05/27/23 08:06 Height 5 ft 3 in Weight 204 lb BMI 36.1 BP 114/64 Blood Pressure Location Rt brachial Position Sitting Pulse 58 Pulse Source Pulse Oximeter Pulse Oximetry (%) 100 Oxygen Delivery Method Room Air Intake Visit Reasons: Annual PE Intake Note: Pt is here today for PE. Allergies liraglutide [From VICTOZA] Allergy (Intermediate, Verified 05/27/23 08:10) VOMITING carvedilol Allergy (Unknown, Verified 05/27/23 08:10) doesn't like the way it makes her feel Sulfa (Sulfonamide Antibiotics) Allergy (Unknown, Verified 05/27/23 08:10) vomiting sulfamethoxazole [From BACTRIM] Allergy (Unknown, Verified 05/27/23 08:10) VOMITIMG trimethoprim [From BACTRIM] Allergy (Unknown, Verified 05/27/23 08:10) VOMITIMG amlodipine Adverse Reaction (Unknown, Verified 05/27/23 08:10) Feet swelling clonidine Adverse Reaction (Unknown, Verified 05/27/23 08:10) Dry mouth Medication List - Last Reconciled 05/27/23 by Renate Mercado MD allopurinol PO aspirin 81 mg PO DAILY atorvastatin 40 mg PO DAILY blood sugar diagnostic As directed cholecalciferol (vitamin D3) 50 mcg PO BEDTIME cyanocobalamin (vitamin B-12) (Vitamin B-12) 1,000 mcg PO DAILY estradiol 10 mcg vaginal 2XW felodipine ER 5 mg PO DAILY ferrous sulfate 325 mg PO DAILY flash glucose sensor (FreeStyle Shakeel 2 Sensor kit) As directed insulin glargine 35 units subcut DAILY insulin lispro (Humalog KwikPen (U-100) Insulin) 2 To 12 unts before each meal based on sliding scale subcut 3 times a day; 30 days levothyroxine 50 mcg PO DAILY losartan 100 mg PO DAILY metformin ER 1,000 mg PO BID metoprolol tartrate 50 mg PO BID pen needle, diabetic As directed Tobacco use date assessed: 05/27/23 Dental Screening Dental Screen Date: 05/27/23 Did you have a dental visit in the last 12 months?: Yes Did you have a dental problem in the last 6 months where you did not have access to dental care?: No Was dental information given to patient?: Patient has dentist HPI Annual PE HPI Details Pt presents for PE. She has been getting recurrent UTIs and nephrolithiasis and follows up with Neurology and Urology. [facility] Medical History (Updated 05/27/23 @ 08:47 by Renate Mercado MD) Diarrhea Fibromyalgia History of MRSA infection Arthritis Back pain Hx of hepatitis C Restless leg syndrome On beta evita at home Annual physical exam Normal Pap smear Hematuria Hyperlipidemia Nephrolithiasis Dysuria History of mammogram Iron deficiency anemia CKD (chronic kidney disease), stage III Hypothyroidism Overweight Diabetes Hypertension Hepatitis C Surgical History (Updated 05/27/23 @ 08:33 by Renate Mercado MD) H/O colonoscopy History of kidney stones Hx of cholecystectomy Family History Father No problems noted. Mother HTN (hypertension) Diabetes mellitus Maternal Grandmother HTN (hypertension) Diabetes mellitus Stroke Social History Housing: House Alcohol intake: never Patient Tobacco Use Status: Never used Tobacco e-Cigarette/Vaping Use: Never Used Current occupational status: disabled Cognitive needs: No Hearing needs: No Vision needs: Yes Questionnaire Thrive Questionnaire Date Thrive assessed: 11/22/22 I am a: Patient What is your living situation today?: I have a steady place to live Within the past 12 months, did the food you bought not last and you didn't have the money to get more?: Never true Within the past 12 months, did you worry whether your food would run out before you got money to buy more?: Never true AUDIT C Alcohol Use Questionnaire (AUDIT-C) 1. How often do you have a drink containing alcohol?: Never 3. How often do you have six or more drinks on one occasion?: Never Total Score: 0 CAROLINA-7 AMB Questionnaire CAROLINA-7 Date CAROLINA - 7 assessed: 11/22/22 Feeling nervous, anxious, or on edge: 0 = Not at all Not being able to stop or control worryin = Not at all Worrying too much about different things: 0 = Not at all Trouble relaxin = Not at all Being so restless that it is hard to sit still: 0 = Not at all Becoming easily annoyed or irritable: 1 = Several days Feeling afraid as if something awful might happen: 0 = Not at all Total CAROLINA-7 score (0-4 normal; 5-9 mild; 10-14 moderate; 15-21 severe): 1 Source: Developed by Drs. Jacinto Cisneros, Molly Rivas, Keon Ang and colleagues, with an educational wes from [employer]. Review of Systems Const All systems reviewed & are unremarkable except as noted in HPI and below Reports no additional complaints Eyes Reports no additional complaints ENT Reports no additional complaints Card Reports no additional complaints Resp Reports no additional complaints GI Reports no additional complaints Reports no additional complaints Musc Reports no additional complaints Physical exam (Primary Care) Vital Signs: Last Vital Signs Pulse 58 05/27/23 08:06 BP 114/64 05/27/23 08:06 Pulse Ox 100 05/27/23 08:06 Oxygen Delivery Method Room Air 05/27/23 08:06 BMI result Body Mass Index 36.1 Tobacco/Smoking Status: Tobacco use Status Tobacco use date assessed 05/27/23 05/27/23 08:13 Patient Tobacco Use Status Never used Tobacco 05/27/23 08:13 e-Cigarette/Vaping Use Never Used 05/27/23 08:07 Thrive Assessment: Date of Thrive Assessment Date Thrive assessed 11/22/22 05/27/23 08:07 Const General: no acute distress HENMT Head: Yes normal to inspection Ears: hearing grossly normal bilaterally General nose exam: Normal external nose present Mouth: Normal oral and palatal mucosa present Throat: Yes posterior oropharynx normal Eyes General: appearance normal, both eyes and all related structures Neck Neck: Yes no lymphadenopathy and Yes supple Resp Effort & Inspection: normal respiratory effort Auscultation: clear to auscultation bilaterally Cardio Rhythm: regular rhythm Heart sounds: S1 normal heart sound present and S2 normal heart sound present GI Inspection: Yes normal to inspection Palpation (GI): Soft to palpation Percussion: Yes normal to percussion Auscultation: normal bowel sounds Assessment and Plan Assessment & Plan (1) CKD (chronic kidney disease), stage III: 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 she was advised to increase Humalog dose to at least 10 units before the dinner, ADA diet increase physical activity weight loss discussed with the patient. 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 patient will return in 6 months with a fasting labs before (3) Hypertension: Comment: BP less than 130/80 Code(s): I10 - Essential (primary) hypertension Plan: Continue current medications (4) Hyperlipidemia: Code(s): E78.5 - Hyperlipidemia, unspecified Plan: Continue statin (5) Nephrolithiasis: Comment: Renal US 12/2019 R side multiple stones largest cluster 1.4 cm, L side 0.3 cm, R side multiple cysts, f/u PVU Code(s): N20.0 - Calculus of kidney Plan: Follow-up with urology and nephrology Orders: Orders Complete Blood Count Auto Diff 6 Months E11.9 - Type 2 diabetes mellitus without complications, E78.5 - Hyperlipidemia, unspecified, I10 - Essential (primary) hypertension, N18.30 - Chronic kidney disease, stage 3 unspecified, N20.0 - Calculus of kidney Hemoglobin A1c 6 Months E11.9 - Type 2 diabetes mellitus without complications, E78.5 - Hyperlipidemia, unspecified, I10 - Essential (primary) hypertension, N18.30 - Chronic kidney disease, stage 3 unspecified, N20.0 - Calculus of kidney Microalbumin, Random (w Creat) 6 Months E11.9 - Type 2 diabetes mellitus without complications, E78.5 - Hyperlipidemia, unspecified, I10 - Essential (primary) hypertension, N18.30 - Chronic kidney disease, stage 3 unspecified, N20.0 - Calculus of kidney IRON PROFILE 6 Months E61.1 - Iron deficiency Comprehensive [place]. Panel Fast 6 Months E11.9 - Type 2 diabetes mellitus without complications, E78.5 - Hyperlipidemia, unspecified, I10 - Essential (primary) hypertension, N18.30 - Chronic kidney disease, stage 3 unspecified, N20.0 - Calculus of kidney Lipid Panel 6 Months E11.9 - Type 2 diabetes mellitus without complications, E78.5 - Hyperlipidemia, unspecified, I10 - Essential (primary) hypertension, N18.30 - Chronic kidney disease, stage 3 unspecified, N20.0 - Calculus of kidney Coding Level of Care Code Est Pt Formerly Named [facility] Care 40-64y([id number]) Diagnoses CKD (chronic kidney disease), stage III N18.30 Diabetes E11.9 Hypertension I10 Hyperlipidemia E78.5 Nephrolithiasis N20.0
== END 2023-05-27 08:48 | disposition home or self-care (01) ==
PROVIDERS: PCP Internal Medicine; Visit Provider Internal Medicine
DX: Z00.00 Encounter for general adult medical examination without abnormal findings (principal); I12.9 Hypertensive chronic kidney disease with stage 1 through stage 4 chronic kidney disease, or unspecified chronic kidney disease; N18.30 Chronic kidney disease, stage 3 unspecified; E11.22 Type 2 diabetes mellitus with diabetic chronic kidney disease; E78.5 Hyperlipidemia, unspecified; N20.0 Calculus of kidney
CPT/HCPCS: 99396

== ENCOUNTER 2023-11-20 10:30 | Outpatient (REF) | payer MEDICARE, MEDICAID, SELFPAY ==
[2023-11-20 13:10] LABS: MANUAL DIFF FLAG NO
[2023-11-20 13:32] LABS: Basophils Percent Auto 0.4 % (0-2); Eosinophils Absolute Auto 0.2 X10*3/uL (0.0-0.4); Eosinophils Percent Auto 2.2 % (0-4); Hematocrit 38.5 % (37.0-47.0); Hemoglobin 12.3 g/dl (12.0-16.0); Imm Gran Abs Auto 0.03 X10*3/uL (0.00-0.03); Imm Gran Pct Auto 0.4 % (0.0-0.4); Lymphocytes Absolute Auto 1.8 X10*3/uL (1.2-4.9); Lymphocytes Percent Auto 24.4 % (20-40); Mean Corpuscular HGB Conc 31.9 g/dl (31.0-35.0); Mean Corpuscular Hemoglobin 30.2 pg (27.0-33.0); Mean Corpuscular Volume 94.6 fL (80.0-98.0); Mean Platelet Volume 10.6 fL (9.4-12.3); Monocytes Absolute Auto 0.5 X10*3/uL (0.1-1.2); Monocytes Percent Auto 7.4 % (2-11); Neutrophils Absolute Auto 4.7 x10*3/uL (2.0-8.3); Neutrophils Percent Auto 65.2 % (45-73); Platelet Count 284 X10*3/uL (160-400); Red Blood Count 4.07 X10*6/uL (4.20-5.50); Red Cell Distribution Width 12.7 % (11.0-16.0); White Blood Count 7.2 X10*3/uL (4.8-10.8)
[2023-11-20 13:41] LABS: Alanine Aminotransferase 18 U/L (0-31); Albumin Level 4.3 g/dL (3.5-5.0); Alkaline Phosphatase 58 U/L (39-117); Anion Gap 13 (12-20); Aspartate Amino Transferase 16 U/L (5-31); Bilirubin Total 0.6 mg/dL (0.0-1.0); Blood Urea Nitrogen 18 mg/dL (9-16); Carbon Dioxide 26 mmol/L (22-29); Chloride 107 mmol/L (96-108); Cholesterol 116 mg/dL (<200); Estimated Average Glucose 151 mg/dL; Estimated Glomerular Filt Rate 45; Glucose Fasting 94 mg/dL (60-99); HDL Cholesterol 37 mg/dL (>40); Hemoglobin A1c % 6.9 % (<6.0); Iron 42 mcg/dL (30-160); LDL Cholesterol Calculated 56 mg/dL (<100); Percent Iron Saturation 15 % (15-50); Potassium 4.1 mmol/L (3.3-5.1); Sodium 142 mmol/L (135-145); Total Iron Binding Capacity 275 mcg/dL (228-428); Total Protein 7.4 g/dL (6.5-8.0); Triglycerides 118 mg/dL (<150); Unsaturated Iron Binding 233 ug/dL
[2023-11-20 14:30] LABS: Creatinine Urine 188.92 mg/dL; Microalbum/Creatinine Ratio Ur 15.8 ug/mg cr (<30)
== END 2023-11-20 10:31 | disposition home or self-care (01) ==
LOC: HO.HMGCLDS 10:30
PROVIDERS: PCP Internal Medicine; Visit Provider Internal Medicine
DX: N18.30 Chronic kidney disease, stage 3 unspecified (principal); E11.9 Type 2 diabetes mellitus without complications; I10 Essential (primary) hypertension; E78.5 Hyperlipidemia, unspecified; N20.0 Calculus of kidney; E61.1 Iron deficiency
CPT/HCPCS: 36415; 80053; 80061; 82043; 82570; 83036; 83540; 85025

== ENCOUNTER 2023-11-25 07:47 | Outpatient (AMB) | payer MEDICARE, MEDICAID, SELFPAY ==
[2023-11-25 08:05] VITALS: BP 118/68; PULSE 62; O2SAT 98; BMI 36.0
--- NOTE | 2023-11-25 08:05 | MHC.PC.OV ---
Vital Signs 11/25/23 08:05 Height 5 ft 3 in Weight 203 lb BMI 36.0 BP 118/68 Blood Pressure Location Rt brachial Position Sitting Pulse 62 Pulse Source Pulse Oximeter Pulse Oximetry (%) 98 Oxygen Delivery Method Room Air Intake Visit Reasons: 6 month f/u DM Intake Note: Pt is here today for 6 months follow up visit. Allergies liraglutide [From VICTOZA] Allergy (Intermediate, Verified 11/25/23 08:08) VOMITING carvedilol Allergy (Unknown, Verified 11/25/23 08:08) doesn't like the way it makes her feel Sulfa (Sulfonamide Antibiotics) Allergy (Unknown, Verified 11/25/23 08:08) vomiting sulfamethoxazole [From BACTRIM] Allergy (Unknown, Verified 11/25/23 08:08) VOMITIMG trimethoprim [From BACTRIM] Allergy (Unknown, Verified 11/25/23 08:08) VOMITIMG amlodipine Adverse Reaction (Unknown, Verified 11/25/23 08:08) Feet swelling clonidine Adverse Reaction (Unknown, Verified 11/25/23 08:08) Dry mouth Medication List - Last Reconciled 11/25/23 by Renate Mercado MD allopurinol 2 tablets once a day aspirin 81 mg PO DAILY atorvastatin 40 mg PO DAILY blood sugar diagnostic As directed cholecalciferol (vitamin D3) 50 mcg PO BEDTIME cyanocobalamin (vitamin B-12) (Vitamin B-12) 1,000 mcg PO DAILY estradiol 10 mcg vaginal 2XW felodipine ER 5 mg PO DAILY ferrous sulfate 325 mg PO DAILY flash glucose sensor (FreeStyle Shakeel 2 Sensor kit) As directed insulin glargine 35 units subcut DAILY insulin lispro (Humalog KwikPen (U-100) Insulin) 2 To 12 unts before each meal based on sliding scale subcut 3 times a day; 30 days levothyroxine 50 mcg PO DAILY losartan 100 mg PO DAILY metformin ER 1,000 mg PO BID metoprolol tartrate 50 mg PO BID pantoprazole 40 mg PO DAILY pen needle, diabetic As directed Tobacco use date assessed: 11/25/23 Dental Screening Dental Screen Date: 11/25/23 Did you have a dental visit in the last 12 months?: Yes Did you have a dental problem in the last 6 months where you did not have access to dental care?: No Was dental information given to patient?: Patient has dentist HPI 6 month f/u DM HPI Details Pt presents for follow-up on hypertension hypothyroidism type 2 diabetes. Patient complains of 3 months episodes of fresh blood in the stool on and off a few times a week, intermittent constipation and diarrhea, lower abd discomfort, IBS symptoms getting worse. Patient is established with GI but would like to get a 2nd opinion because she is concerned about Crohn's disease. She had a negative colonoscopy 2 years ago. Patient complains of intermittent left-sided chest pain, sharp lasting for few hours at a time, not triggered by physical activity but triggered by heartburn/GERD usually up to once a week. Patient tried omeprazole without significant relief. She denies nausea vomiting dysphagia odynophagia epigastric abdominal pain. Patient had upper endoscopy >10 years ago. [facility] Medical History (Updated 11/25/23 @ 10:02 by Renate Mercado MD) Diarrhea Fibromyalgia History of MRSA infection Arthritis Back pain Hx of hepatitis C Restless leg syndrome On beta evita at home Annual physical exam Normal Pap smear Hematuria Hyperlipidemia Nephrolithiasis Dysuria History of mammogram Iron deficiency anemia CKD (chronic kidney disease), stage III Hypothyroidism Overweight Diabetes Hypertension Hepatitis C Surgical History H/O colonoscopy History of kidney stones Hx of cholecystectomy Family History Father No problems noted. Mother HTN (hypertension) Diabetes mellitus Maternal Grandmother HTN (hypertension) Diabetes mellitus Stroke Social History Housing: House Alcohol intake: never Patient Tobacco Use Status: Never used Tobacco e-Cigarette/Vaping Use: Never Used service: No Current occupational status: disabled Cognitive needs: No Hearing needs: No Vision needs: Yes Questionnaire PHQ-9 Over the last 2 weeks, how often have you been bothered by any of the following problems? 1. Little interest or pleasure in doing things: not at all 2. Feeling down, depressed, or hopeless: not at all 3. Trouble falling or staying asleep, or sleeping too much: several days 4. Feeling tired or having little energy: several days 5. Poor appetite or overeating: not at all 6. Feeling bad about yourself - or that you are a failure or have let yourself or your family down: not at all 7. Trouble concentrating on things, such as reading the newspaper or watching television: not at all 8. Moving or speaking so slowly that other people could have noticed. Or the opposite - being so fidgety or restless that you have been moving around a lot more than usual: not at all 9. Thoughts that you would be better off or of hurting yourself in some way: not at all Total score: 2 Depression Screening Interpretation: Negative Depression Screening Done: Yes Source: Developed by Drs. Jacinto Cisneros, Molly Rivas, Keon Ang and colleagues, with an educational wes from [email or web address]. Thrive Questionnaire Date Thrive assessed: 11/25/23 I am a: Patient What is your living situation today?: I have a steady place to live Within the past 12 months, did the food you bought not last and you didn't have the money to get more?: Sometimes True Within the past 12 months, did you worry whether your food would run out before you got money to buy more?: Sometimes True Do you have trouble paying for medicines?: No Do you have trouble getting transportation to medical appointments?: No Do you have trouble paying your heating and electricity bill?: Yes Do you have trouble taking care of your child, family member or friend?: I choose not to answer this question Do you have trouble with day-to-day activities such as bathing, preparing meals, shopping, managing finances, etc.?: Yes Are you currently unemployed and looking for a job?: No Are you interested in more education?: No Please select the resources that you would like help with: Housing/Correction Currently or been in a relationship where the following occur: I choose not to answer THRIVE Score: 3 AUDIT C Alcohol Use Questionnaire (AUDIT-C) 1. How often do you have a drink containing alcohol?: Never 2. How many drinks containing alcohol do you have on a typical day when you are drinking?: 1 or 2 3. How often do you have six or more drinks on one occasion?: Never Total Score: 0 CAROLINA-7 AMB Questionnaire CAROLINA-7 Date CAROLINA - 7 assessed: 11/25/23 Feeling nervous, anxious, or on edge: 0 = Not at all Not being able to stop or control worryin = Not at all Worrying too much about different things: 0 = Not at all Trouble relaxin = Not at all Being so restless that it is hard to sit still: 0 = Not at all Becoming easily annoyed or irritable: 1 = Several days Feeling afraid as if something awful might happen: 0 = Not at all Total CAROLINA-7 score (0-4 normal; 5-9 mild; 10-14 moderate; 15-21 severe): 1 Source: Developed by Drs. Jacinto Cisneros, Molly Rivas, Keon Ang and colleagues, with an educational wes from [email or web address]. Review of Systems Const All systems reviewed & are unremarkable except as noted in HPI and below Eyes Reports no additional complaints ENT Reports no additional complaints Card Reports no additional complaints Resp Reports no additional complaints GI Reports no additional complaints Reports no additional complaints Physical exam (Primary Care) Vital Signs: Last Vital Signs Pulse 62 11/25/23 08:05 BP 118/68 11/25/23 08:05 Pulse Ox 98 11/25/23 08:05 Oxygen Delivery Method Room Air 11/25/23 08:05 BMI result Body Mass Index 36.0 Tobacco/Smoking Status: Tobacco use Status Tobacco use date assessed 11/25/23 11/25/23 08:11 Patient Tobacco Use Status Never used Tobacco 11/25/23 08:05 e-Cigarette/Vaping Use Never Used 11/25/23 08:05 PHQ-9: PHQ-9 Score PHQ-9: Total score 2 11/25/23 08:05 Depression Screening Interpretation: Negative Thrive Assessment: Date of Thrive Assessment Date Thrive assessed 11/25/23 11/25/23 08:11 Currently or been in a relationship where the following occur: I choose not to answer Const General: no acute distress HENMT Head: Yes normal to inspection Mouth: Normal oral and palatal mucosa present Eyes General: appearance normal, both eyes and all related structures Neck Neck: Yes no lymphadenopathy and Yes supple Resp Effort & Inspection: normal respiratory effort Auscultation: clear to auscultation bilaterally Cardio Rhythm: regular rhythm Heart sounds: S1 normal heart sound present and S2 normal heart sound present GI Inspection: Yes normal to inspection Palpation (GI): Soft to palpation Percussion: Yes normal to percussion Auscultation: normal bowel sounds Assessment and Plan Assessment & Plan (1) Angina at rest: Code(s): I20.89 - Other forms of angina pectoris Plan: refer nuclear stress test to rule out angina with multiple risk factors including hypertension type 2 diabetes and 8 (2) Hypertension: Comment: Patient is established with Nephrology Code(s): I10 - Essential (primary) hypertension Plan: Continue current medications follow-up with nephrology (3) Diabetes: Comment: A1C less than 7.5, f/u , patient could not tolerate GLP 1 agonist or SGLT 2 inhibitor (caused dehydration and worsening renal function) Code(s): E11.9 - Type 2 diabetes mellitus without complications Plan: A1c is 6.9, ADA diet regular exercise weight loss discussed with the patient continue current medications follow-up with endocrinology every 3 months (4) Hypothyroidism: Comment: f/u endo SMA Code(s): E03.9 - Hypothyroidism, unspecified Plan: Continue levothyroxine (5) CKD (chronic kidney disease), stage III: Comment: f/u engraver lettering Code(s): N18.30 - Chronic kidney disease, stage 3 unspecified Plan: Avoid nephrotoxins monitor renal function (6) Hyperlipidemia: Code(s): E78.5 - Hyperlipidemia, unspecified Plan: Continue statin (7) Iron deficiency: Comment: On iron supplement Code(s): E61.1 - Iron deficiency Plan: Monitor CBC (8) GERD (gastroesophageal reflux disease): Code(s): K21.9 - Gastro-esophageal reflux disease without esophagitis Plan: Try pantoprazole for 2 months, patient will call with the name of her preferred pathology assistant for the referral (9) Rectal bleed: Code(s): K62.5 - Hemorrhage of anus and rectum Plan: Check Hemoccult, patient was advised to take stool softener regularly to prevent constipation. She will call with the name of GI of her choice for a refer Orders: Orders CA stress test Today I20.89 - Other forms of angina pectoris Comprehensive [place]. Panel Fast 6 Months E03.9 - Hypothyroidism, unspecified, E11.9 - Type 2 diabetes mellitus without complications, E61.1 - Iron deficiency, E78.5 - Hyperlipidemia, unspecified, I10 - Essential (primary) hypertension, N18.30 - Chronic kidney disease, stage 3 unspecified Complete Blood Count Auto Diff 6 Months E03.9 - Hypothyroidism, unspecified, E11.9 - Type 2 diabetes mellitus without complications, E61.1 - Iron deficiency, E78.5 - Hyperlipidemia, unspecified, I10 - Essential (primary) hypertension, N18.30 - Chronic kidney disease, stage 3 unspecified Hemoglobin A1c 6 Months E03.9 - Hypothyroidism, unspecified, E11.9 - Type 2 diabetes mellitus without complications, E61.1 - Iron deficiency, E78.5 - Hyperlipidemia, unspecified, I10 - Essential (primary) hypertension, N18.30 - Chronic kidney disease, stage 3 unspecified Lipid Panel 6 Months E03.9 - Hypothyroidism, unspecified, E11.9 - Type 2 diabetes mellitus without complications, E61.1 - Iron deficiency, E78.5 - Hyperlipidemia, unspecified, I10 - Essential (primary) hypertension, N18.30 - Chronic kidney disease, stage 3 unspecified Microalbumin, Random (w Creat) 6 Months E03.9 - Hypothyroidism, unspecified, E11.9 - Type 2 diabetes mellitus without complications, E61.1 - Iron deficiency, E78.5 - Hyperlipidemia, unspecified, I10 - Essential (primary) hypertension, N18.30 - Chronic kidney disease, stage 3 unspecified IRON PROFILE 6 Months E03.9 - Hypothyroidism, unspecified, E11.9 - Type 2 diabetes mellitus without complications, E61.1 - Iron deficiency, E78.5 - Hyperlipidemia, unspecified, I10 - Essential (primary) hypertension, N18.30 - Chronic kidney disease, stage 3 unspecified NM cardiolite stress test Today I20.89 - Other forms of angina pectoris Vitamin B12 and Folate 6 Months E03.9 - Hypothyroidism, unspecified, E11.9 - Type 2 diabetes mellitus without complications, E61.1 - Iron deficiency, E78.5 - Hyperlipidemia, unspecified, I10 - Essential (primary) hypertension, N18.30 - Chronic kidney disease, stage 3 unspecified Medications: New pantoprazole 40 mg PO DAILY 30 tabs 3RF Coding Level of Care Code Est Pt Level 4 (44419) Diagnoses Angina at rest I20.89 Hypertension I10 Diabetes E11.9 Hypothyroidism E03.9 CKD (chronic kidney disease), stage III N18.30 Hyperlipidemia E78.5 Iron deficiency E61.1 GERD (gastroesophageal reflux disease) K21.9 Rectal bleed K62.5
== END 2023-11-25 08:51 | disposition home or self-care (01) ==
PROVIDERS: PCP Internal Medicine; Visit Provider Internal Medicine
DX: I20.89 Other forms of angina pectoris (principal); I12.9 Hypertensive chronic kidney disease with stage 1 through stage 4 chronic kidney disease, or unspecified chronic kidney disease; E11.22 Type 2 diabetes mellitus with diabetic chronic kidney disease; N18.30 Chronic kidney disease, stage 3 unspecified; E03.9 Hypothyroidism, unspecified; E78.5 Hyperlipidemia, unspecified; E61.1 Iron deficiency; K21.9 Gastro-esophageal reflux disease without esophagitis; K62.5 Hemorrhage of anus and rectum
CPT/HCPCS: 99214

== ENCOUNTER 2023-11-25 16:48 | Outpatient (REF) | payer MEDICARE, MEDICAID, SELFPAY ==
[2023-11-28 07:37] LABS: FIT Int Ctl YES; FIT1 POSITIVE (NEGATIVE); FIT2 POSITIVE (NEGATIVE)
== END 2023-11-25 16:49 | disposition home or self-care (01) ==
LOC: HO.LNP 16:48
PROVIDERS: Visit Provider Internal Medicine
DX: Z13.89 Encounter for screening for other disorder (principal)
CPT/HCPCS: 82274

== ENCOUNTER 2024-05-19 09:03 | Outpatient (AMB) | payer MEDICARE, MEDICAID, SELFPAY ==
[2024-05-19 09:10] VITALS: BP 122/78; PULSE 71; O2SAT 99; BMI 33.7
--- NOTE | 2024-05-19 09:10 | AM.OFFVISMDC ---
Intake Vital Signs 05/19/24 09:10 Height 5 ft 3 in Weight 190 lb BMI 33.7 BP 122/78 Blood Pressure Location Rt brachial Position Sitting Pulse 71 Pulse Source Pulse Oximeter Pulse Oximetry (%) 99 Oxygen Delivery Method Room Air Intake Visit Reasons: SWV [id number] Allergies liraglutide [From VICTOZA] Allergy (Intermediate, Verified 05/19/24 09:12) VOMITING carvedilol Allergy (Unknown, Verified 05/19/24 09:12) doesn't like the way it makes her feel Sulfa (Sulfonamide Antibiotics) Allergy (Unknown, Verified 05/19/24 09:12) vomiting sulfamethoxazole [From BACTRIM] Allergy (Unknown, Verified 05/19/24 09:12) VOMITIMG trimethoprim [From BACTRIM] Allergy (Unknown, Verified 05/19/24 09:12) VOMITIMG empagliflozin [From Jardiance] Adverse Reaction (Intermediate, Verified 05/19/24 09:40) Nausea and Vomiting amlodipine Adverse Reaction (Unknown, Verified 05/19/24 09:12) Feet swelling clonidine Adverse Reaction (Unknown, Verified 05/19/24 09:12) Dry mouth dapagliflozin [From Farxiga] Adverse Reaction (Verified 05/19/24 09:39) Nausea Medication List - Last Reconciled 05/19/24 by Renate Mercado MD allopurinol 100 mg PO aspirin 81 mg PO DAILY atorvastatin 40 mg PO DAILY blood sugar diagnostic As directed cholecalciferol (vitamin D3) 50 mcg PO BEDTIME cyanocobalamin (vitamin B-12) (Vitamin B-12) 1,000 mcg PO DAILY estradiol 10 mcg vaginal 2XW felodipine ER 5 mg PO DAILY ferrous sulfate 325 mg PO DAILY flash glucose sensor (FreeStyle Shakeel 2 Sensor kit) As directed insulin glargine 35 units subcut DAILY insulin lispro (Humalog KwikPen (U-100) Insulin) 2 To 12 unts before each meal based on sliding scale subcut 3 times a day; 30 days levothyroxine 50 mcg PO DAILY losartan 100 mg PO DAILY metformin ER 1,000 mg PO BID metoprolol tartrate 50 mg PO BID pantoprazole 40 mg PO DAILY pen needle, diabetic As directed HPI SWV [id number] HPI Details Initiated the conversation about Advanced Directives. Advanced Directives help? patients prepare for current and future decisions about their medical treatment? and place of care. Discussed with patient that it is a process where a patients? current condition and prognosis are reviewed, their wishes for information? regarding their illness are elicited, and likely medical dilemmas are presented? and options discussed. The form can be amended as needed, reviewed yearly and? make changes as needed IPPE/AWV ? year old presents? for her ? Annual? Wellness Visit, initial visit.? Medical / Social History Reviewed? Past Medical History ?Yes? . ? [place]? of Care / Care Team list updated ?Yes . ? Surgical/Hospitalization? History ?Yes . ? Current Medications? (including OTC and supplements) ?Yes . ? Family History ?Yes? . ? Tobacco? Control form ?Yes . ? AUDIT-C (Alcohol use) form? ?Yes . ? Illicit drug use in Social? History ?Yes . ? Current diagnosis of? depression? ?No ? Appropriate PHQ2/PHQ9? completed ?Yes . ? Data entered by ?[employer]? [employer] and reviewed by provider ? Fall Risk ? Fall? History? Have you had any falls with? injury in the past year? ?No . ? Have you had two or more? falls in the past year? ?No . ? Fall Risk Assessment: ?No? falls in the past year . ? HRA filled out by? the patient, reviewed by Provider and scanned. ? IPPE/AWV ? Balance? [place]? ?Yes . ? Tandem? walk ?Yes . ? Walk and? Turn ?Yes . ? Rise from? sit to stand ?Yes . ?Vision? Corrective? lens ?Yes ? Vision? screen ? Up-to-date, has an appointment [] for vision? screening and glaucoma screening ?Hearing? Whisper? test ?pass .? Initiated the conversation about Advanced Directives. Advanced Directives help? patients prepare for current and future decisions about their medical treatment? and place of care. Discussed with patient that it is a process where a patients? current condition and prognosis are reviewed, their wishes for information? regarding their illness are elicited, and likely medical dilemmas are presented? and options discussed. The form can be amended as needed, reviewed yearly and? make changes as needed Written? Plan?Completed. See Patient? Documents. [facility] Medical History Diarrhea Fibromyalgia History of MRSA infection Arthritis Back pain Hx of hepatitis C Restless leg syndrome On beta evita at home Annual physical exam Normal Pap smear Hematuria Hyperlipidemia Nephrolithiasis Dysuria History of mammogram Iron deficiency anemia CKD (chronic kidney disease), stage III Hypothyroidism Overweight Diabetes Hypertension Hepatitis C Surgical History H/O colonoscopy History of kidney stones Hx of cholecystectomy Family History Father No problems noted. Mother HTN (hypertension) Diabetes mellitus Maternal Grandmother HTN (hypertension) Diabetes mellitus Stroke Social History Housing: House Alcohol intake: never Patient Tobacco Use Status: Never used Tobacco e-Cigarette/Vaping Use: Never Used service: No Current occupational status: disabled Cognitive needs: No Hearing needs: No Vision needs: Yes Questionnaire Medicare Wellness Checkup What gender do you identify with?: female During the past 4 weeks, how much have you been bothered by emotional problems such as feeling anxious, depressed, irritable, sad or downhearted, and blue?: not at all During the past 4 weeks, has your physical & emotional health limited your social activities with family, friends, neighbors, or groups?: quite a bit During the past 4 weeks, how much bodily pain have you generally had?: moderate pain During the past 4 weeks, was someone available to help you if you needed & wanted help?: yes, some During the past 4 weeks, what was the hardest physical activity you could do for at least 2 minutes?: very light Can you get to places out of walking distance without help? (For eg., can you travel alone on buses, taxis or drive your car?): Yes Can you go shopping for groceries or clothes without someone's help?: No Can you prepare your own meals?: Yes Can you do your housework without help?: Yes Because of any health problems, do you need the help of another person with your personal care needs such as eating, bathing, dressing or getting around the house?: Yes Can you handle your own money without help?: Yes During the past 4 weeks, how would you rate your health in general?: poor During the past 4 weeks how have things been going for you?: good & bad parts about equal Are you having difficulties driving your car?: no Do you always fasten your seat belt when you are in a car?: yes, usually During past 4 weeks, have you been bothered by the following: never: Problems using the telephone?, seldom: Falling or dizzy when standing up, Trouble eating well? and Teeth or denture problems?, often: Tiredness or fatigue? and always: Sexual problems? Have you fallen 2 or more times in the past year?: Yes Are you afraid of falling?: Yes Are you a smoker?: no During the past 4 weeks, how many drinks of wine, beer, or other alcoholic beverages did you have?: no alcohol at all Do you exercise for about 20 minutes 3 or more times a week?: no, I usually do not exercise this much Have you been given information to help with the following?: no: Hazards in your house that might hurt you? and no: Keeping track of your medications? How often do you have trouble taking medicines the way you have been told to take them?: I always take medicine as prescribed How confident are you that you can control & manage most of your health problems?: somewhat confident What is your race?: White Mini Mental State Exam (MMSE) Orientation What is the (year) (season) (date) (day) (month)?: year, season, date, day and month Where are we (state) (county) (town or city) (hospital) (floor)?: state, county, town or city, hospital/clinic and floor Registration Name of 3 unrelated objects clearly and slowly, then ask patient to repeat all 3 of them. (1st repeat determines score. Make sure they can repeat all three): object 1, object 2 and object 3 Attention & Calculation (CHOOSE ONE) Spell WORLD backwards (DLROW): 5 letters Recall Ask patient to repeat the 3 items from question #3.: object 1, object 2 and object 3 Language Show patient a wristwatch & ask what it is. Repeat for pencil.: watch and pencil Ask the patient to repeat the phrase 'No ifs, ands, or buts' after you.: correct Ask the patient to 'take a piece of paper with their right hand' 'fold paper in half' 'place paper on floor': take paper in right hand, fold paper in half and place paper on floor Print the sentence 'CLOSE YOUR EYES' on a piece. If patient actually closes eyes then score.: followed written direction Give patient a blank piece of paper & ask to write a sentence. Score if it contains a noun & verb.: sentence contains subject and verb Score Score: 29 PHQ-9 Over the last 2 weeks, how often have you been bothered by any of the following problems? 1. Little interest or pleasure in doing things: not at all 2. Feeling down, depressed, or hopeless: not at all 3. Trouble falling or staying asleep, or sleeping too much: several days 4. Feeling tired or having little energy: several days 5. Poor appetite or overeating: not at all 6. Feeling bad about yourself - or that you are a failure or have let yourself or your family down: not at all 7. Trouble concentrating on things, such as reading the newspaper or watching television: not at all 8. Moving or speaking so slowly that other people could have noticed. Or the opposite - being so fidgety or restless that you have been moving around a lot more than usual: not at all 9. Thoughts that you would be better off or of hurting yourself in some way: not at all Total score: 2 Depression Screening Interpretation: Negative Depression Screening Done: Yes 28308 - PHQ-9 Billing: Yes Source: Developed by Drs. Jacinto Cisneros, Molly Rivas, Keon Ang and colleagues, with an educational wes from [employer]. Review of Systems Const All systems reviewed & are unremarkable except as noted in HPI and below Reports no additional complaints Eyes Reports no additional complaints ENT Reports no additional complaints Card Reports no additional complaints Resp Reports no additional complaints GI Reports no additional complaints Reports no additional complaints Physical Exam Vital Signs: Last Vital Signs Pulse 71 05/19/24 09:10 BP 122/78 05/19/24 09:10 Pulse Ox 99 05/19/24 09:10 Oxygen Delivery Method Room Air 05/19/24 09:10 BMI result Body Mass Index 33.7 HEENT Head: Yes normal to inspection Ears: hearing grossly normal bilaterally Neck Neck: Yes no lymphadenopathy and Yes supple Resp Effort & Inspection: normal respiratory effort Auscultation: clear to auscultation bilaterally Cardio Rhythm: regular rhythm Heart sounds: S1 normal heart sound present and S2 normal heart sound present GI Inspection: Yes normal to inspection Palpation (GI): Soft to palpation Percussion: Yes normal to percussion Auscultation: normal bowel sounds Extrem General: Yes no clubbing, cyanosis or edema Assessment & Plan Assessment & Plan (1) Diabetes: Comment: A1C less than 7.5, f/u , patient could not tolerate GLP 1 agonist or SGLT 2 inhibitor (caused dehydration and worsening renal function) Code(s): E11.9 - Type 2 diabetes mellitus without complications Plan: Shakeel sensor recordings reviewed and patient was advised to restart Lantus at a lower dose of 20 units instead of 35 and continue short-acting insulin before meals increasing to 8-10 units for the readings above 200 before meals. ADA diet increase physical activity discussed with the patient . she will continue metformin. Patient has an appointment with inspector aligning in 3 months. And follow-up in 6 months with a fasting labs before (2) CKD (chronic kidney disease), stage III: Comment: f/u medical administrative technician once a year Code(s): N18.30 - Chronic kidney disease, stage 3 unspecified Plan: Avoid nephrotoxins monitor renal function (3) Hyperlipidemia: Code(s): E78.5 - Hyperlipidemia, unspecified Plan: Continue statin (4) Annual physical exam: Code(s): Z00.00 - Encounter for general adult medical examination without abnormal findings Plan: Well-balanced diet regular physical activity weight loss discussed with the patient. She is up-to-date with the mammogram colonoscopy. (5) CAD (coronary artery disease): Comment: Abnormal stress test Lexiscan 02/2024 , coronary artery stenosis LAD 50% on CT 2017, repeat done 04/2024 , follow-up with the Cardiology at [facility], Dr. Daley Code(s): I25.10 - Atherosclerotic heart disease of [place] coronary artery without angina pectoris Plan: Follow-up with cardiology continue statin and aspirin Orders: Orders Lipid Panel 6 Months E11.9 - Type 2 diabetes mellitus without complications, E78.5 - Hyperlipidemia, unspecified, N18.30 - Chronic kidney disease, stage 3 unspecified, Z00.00 - Encounter for general adult medical examination without abnormal findings Microalbumin, Random (w Creat) 6 Months E11.9 - Type 2 diabetes mellitus without complications, E78.5 - Hyperlipidemia, unspecified, N18.30 - Chronic kidney disease, stage 3 unspecified, Z00.00 - Encounter for general adult medical examination without abnormal findings Hemoglobin A1c 6 Months E11.9 - Type 2 diabetes mellitus without complications, E78.5 - Hyperlipidemia, unspecified, N18.30 - Chronic kidney disease, stage 3 unspecified, Z00.00 - Encounter for general adult medical examination without abnormal findings Comprehensive Simms. Panel Fast 6 Months E11.9 - Type 2 diabetes mellitus without complications, E78.5 - Hyperlipidemia, unspecified, N18.30 - Chronic kidney disease, stage 3 unspecified, Z00.00 - Encounter for general adult medical examination without abnormal findings Complete Blood Count Auto Diff 6 Months E11.9 - Type 2 diabetes mellitus without complications, E78.5 - Hyperlipidemia, unspecified, N18.30 - Chronic kidney disease, stage 3 unspecified, Z00.00 - Encounter for general adult medical examination without abnormal findings Quality Reporting (2019) Depression/Bipolar (159/160/161/177) PHQ-9: Total score: 2 Coding Level of Care Code Medicare Subsequent (G0439) Diagnoses Diabetes E11.9 CKD (chronic kidney disease), stage III N18.30 Hyperlipidemia E78.5 Annual physical exam Z00.00 CAD (coronary artery disease) I25.10 CPT Codes Advance Care Planning - Advance Care Planning discussion: On file, no changes ([id number]) Advance Care Planning - Time spent: 1-15 minutes, on File ([id number]) Additional Codes PHQ-9 - 74504 - PHQ-9 Billing: Yes ([id number]) Advance Care Planning Advance Care Planning discussion: On file, no changes Forms completed: Health Care Proxy Time spent: 1-15 minutes, on File Did not discuss due to Cultural/Spiritual beliefs: Yes
== END 2024-05-19 09:56 | disposition home or self-care (01) ==
PROVIDERS: PCP Internal Medicine; Visit Provider Internal Medicine
DX: Z00.00 Encounter for general adult medical examination without abnormal findings (principal); E11.69 Type 2 diabetes mellitus with other specified complication; N18.30 Chronic kidney disease, stage 3 unspecified; E78.5 Hyperlipidemia, unspecified; I25.10 Atherosclerotic heart disease of native coronary artery without angina pectoris

== ENCOUNTER → 2024-05-19 09:03 | Outpatient (BNVA) | payer MEDICARE, MEDICAID, SELFPAY | PROVIDERS: PCP Internal Medicine; Visit Provider Internal Medicine | DX: Z00.00 Encounter for general adult medical examination without abnormal findings (principal); E11.22 Type 2 diabetes mellitus with diabetic chronic kidney disease; N18.30 Chronic kidney disease, stage 3 unspecified; I25.10 Atherosclerotic heart disease of native coronary artery without angina pectoris; E78.5 Hyperlipidemia, unspecified | CPT/HCPCS: 96127 ==

== ENCOUNTER 2024-11-19 06:21 | Outpatient (REF) | payer MEDICARE, MEDICAID, SELFPAY ==
[2024-11-19 10:22] LABS: MANUAL DIFF FLAG NO
[2024-11-19 10:44] LABS: Hematocrit 35.9 % (37.0-47.0); Hemoglobin 11.5 g/dl (12.0-16.0); Imm Gran Abs Auto 0.02 X10*3/uL (0.00-0.03); Imm Gran Pct Auto 0.3 % (0.0-0.4); Lymphocytes Absolute Auto 1.8 X10*3/uL (1.2-4.9); Mean Corpuscular HGB Conc 32.0 g/dl (31.0-35.0); Mean Corpuscular Hemoglobin 30.6 pg (27.0-33.0); Mean Corpuscular Volume 95.5 fL (80.0-98.0); NRBC Abs Auto 0.000 X10*3/uL (0.0-0.012); NRBC Pct Auto 0.0 /100WBC (0.0-0.2); Platelet Count 263 X10*3/uL (160-400); Red Blood Count 3.76 X10*6/uL (4.20-5.50); White Blood Count 6.3 X10*3/uL (4.8-10.8)
[2024-11-19 10:52] LABS: Hemoglobin A1C 157.1629 umol/L; Total Hemoglobin (HGBA1C) 3087.3540 umol/L
[2024-11-19 10:53] LABS: Alanine Aminotransferase 16 U/L (0-31); Albumin Level 4.3 g/dL (3.5-5.0); Alkaline Phosphatase 47 U/L (39-117); Anion Gap 13 (12-20); Aspartate Amino Transferase 23 U/L (5-31); Blood Urea Nitrogen 26 mg/dL (9-16); Calcium 10.0 mg/dL (8.4-10.2); Carbon Dioxide 25 mmol/L (22-29); Chloride 108 mmol/L (96-108); Cholesterol 110 mg/dL (<200); Estimated Glomerular Filt Rate 40; HDL Cholesterol 35 mg/dL (>40); Iron 52 mcg/dL (30-160); Percent Iron Saturation 19 % (15-50); Potassium 4.5 mmol/L (3.3-5.1); Sodium 141 mmol/L (135-145); Total Iron Binding Capacity 275 mcg/dL (228-428); Total Protein 7.1 g/dL (6.5-8.0); Triglycerides 139 mg/dL (<150); Unsaturated Iron Binding 223 ug/dL
[2024-11-19 11:28] LABS: Folate 6.6 ng/mL (> or = 4.0); Vitamin B12 677 pg/mL (200-900)
[2024-11-19 11:40] LABS: Microalbum/Creatinine Ratio Ur 23.9 ug/mg cr (<30)
== END 2024-11-19 06:22 | disposition home or self-care (01) ==
LOC: HO.HMGCLDS 06:21
PROVIDERS: PCP Internal Medicine; Visit Provider Internal Medicine
DX: Z00.00 Encounter for general adult medical examination without abnormal findings (principal); I12.9 Hypertensive chronic kidney disease with stage 1 through stage 4 chronic kidney disease, or unspecified chronic kidney disease; E11.22 Type 2 diabetes mellitus with diabetic chronic kidney disease; N18.30 Chronic kidney disease, stage 3 unspecified; E78.5 Hyperlipidemia, unspecified; E03.9 Hypothyroidism, unspecified; E61.1 Iron deficiency
CPT/HCPCS: 36415; 80053; 80061; 82043; 82570; 82607; 82746; 83036; 83540; 85025

== ENCOUNTER 2024-11-24 08:32 | Outpatient (AMB) | payer MEDICARE, MEDICAID, SELFPAY ==
[2024-11-24 08:34] VITALS: BP 124/68; PULSE 67; RESP 18; TEMP 36.6; O2SAT 99; BMI 32.9
--- NOTE | 2024-11-24 08:34 | A.OFFPC_ITS ---
Vital Signs 11/24/24 08:34 Height 5 ft 3 in Weight 186 lb BMI 32.9 BP 124/68 Blood Pressure Location Rt brachial Position Sitting Respiration 18 Pulse 67 Pulse Source Pulse Oximeter Temp 97.9 F Temp Source Oral Pulse Oximetry (%) 99 Oxygen Delivery Method Room Air Intake Visit Reasons: 6 months f/up Intake Note: Pt is here today for 6 months follow up visit. Allergies liraglutide (From VICTOZA) Allergy (Intermediate, Verified 11/24/24 08:34) VOMITING carvedilol Allergy (Unknown, Verified 11/24/24 08:34) doesn't like the way it makes her feel Sulfa (Sulfonamide Antibiotics) Allergy (Unknown, Verified 11/24/24 08:34) vomiting sulfamethoxazole (From BACTRIM) Allergy (Unknown, Verified 11/24/24 08:34) VOMITIMG trimethoprim (From BACTRIM) Allergy (Unknown, Verified 11/24/24 08:34) VOMITIMG empagliflozin (From Jardiance) Adverse Reaction (Intermediate, Verified 11/24/24 08:34) Nausea and Vomiting amlodipine Adverse Reaction (Unknown, Verified 11/24/24 08:34) Feet swelling clonidine Adverse Reaction (Unknown, Verified 11/24/24 08:34) Dry mouth dapagliflozin (From Farxiga) Adverse Reaction (Verified 11/24/24 08:34) Nausea Medication List - Last Reconciled 11/24/24 by Renate Mercado MD allopurinol 100 mg PO aspirin 81 mg PO DAILY Held on 07/07/21. Instructions: Resume on 07/14/21. atorvastatin 40 mg PO DAILY blood sugar diagnostic As directed cholecalciferol (vitamin D3) 50 mcg PO BEDTIME cyanocobalamin (vitamin B-12) (Vitamin B-12) 1,000 mcg PO DAILY estradiol 10 mcg vaginal 2XW felodipine ER 5 mg PO DAILY ferrous sulfate 325 mg PO DAILY flash glucose sensor (FreeStyle Shakeel 2 Sensor kit) As directed insulin glargine 35 units subcut DAILY insulin lispro (Humalog KwikPen (U-100) Insulin) 2 To 12 unts before each meal based on sliding scale subcut 3 times a day; 30 days levothyroxine 50 mcg PO DAILY losartan 100 mg PO DAILY metformin ER 1,000 mg PO BID metoprolol tartrate 50 mg PO BID pantoprazole 40 mg PO DAILY pen needle, diabetic As directed Tobacco use date assessed: 11/24/24 Dental Screening Dental Screen Date: 11/24/24 Did you have a dental visit in the last 12 months?: Yes Did you have a dental problem in the last 6 months where you did not have access to dental care?: No Was dental information given to patient?: Patient has dentist HPI 6 months f/up HPI Details Pt presents for f/u IDDM, CKD 3, HTN, hyperlipid. pt c/o LBP and stiffness worse in AM, no weakness or numbness in extremities. Pt was evaluated by neurosurgeon and orthopedic surgeon and no surgery was recommended. [facility] Medical History (Updated 11/24/24 @ 09:51 by Renate Mercado MD) Chest pain Diarrhea Fibromyalgia History of MRSA infection Arthritis Back pain Hx of hepatitis C Restless leg syndrome On beta evita at home Annual physical exam Normal Pap smear Hematuria Hyperlipidemia Nephrolithiasis Dysuria History of mammogram Iron deficiency anemia CKD (chronic kidney disease), stage III Hypothyroidism Overweight Diabetes Hypertension Hepatitis C Surgical History H/O colonoscopy History of kidney stones Hx of cholecystectomy Family History Father No problems noted. Mother HTN (hypertension) Diabetes mellitus Maternal Grandmother HTN (hypertension) Diabetes mellitus Stroke Social History Housing: House Alcohol intake: never Patient Tobacco Use Status: Never used Tobacco e-Cigarette/Vaping Use: Never Used service: No Current occupational status: disabled Cognitive needs: No Hearing needs: No Vision needs: Yes Questionnaire Thrive Questionnaire Date Thrive assessed: 11/24/24 I am a: Patient What is your living situation today?: I have a steady place to live Within the past 12 months, did the food you bought not last and you didn't have the money to get more?: Never true Within the past 12 months, did you worry whether your food would run out before you got money to buy more?: Never true Do you have trouble paying for medicines?: No Do you have trouble getting transportation to medical appointments?: No Do you have trouble paying your heating and electricity bill?: Yes Do you have trouble taking care of your child, family member or friend?: No Do you have trouble with day-to-day activities such as bathing, preparing meals, shopping, managing finances, etc.?: Yes Are you currently unemployed and looking for a job?: No Are you interested in more education?: No Please select the resources that you would like help with: None Currently or been in a relationship where the following occur: I choose not to answer THRIVE Score: 1 AUDIT C Alcohol Use Questionnaire (AUDIT-C) 1. How often do you have a drink containing alcohol?: Never 3. How often do you have six or more drinks on one occasion?: Never Total Score: 0 CAROLINA-7 AMB Questionnaire CAROLINA-7 Date CAROLINA - 7 assessed: 11/24/24 Feeling nervous, anxious, or on edge: 0 = Not at all Not being able to stop or control worryin = Not at all Worrying too much about different things: 1 = Several days Trouble relaxin = Several days Being so restless that it is hard to sit still: 0 = Not at all Becoming easily annoyed or irritable: 1 = Several days Feeling afraid as if something awful might happen: 0 = Not at all Total CAROLINA-7 score (0-4 normal; 5-9 mild; 10-14 moderate; 15-21 severe): 3 Source: Developed by Drs. Jacinto Cisneros, Molly Rivas, Keon Ang and colleagues, with an educational wes from [employer]. CAROLINA-7 Assessment Billing CAROLINA-7 Assessment Tool: CAROLINA-7 Assessment 96081 Review of Systems Const All systems reviewed & are unremarkable except as noted in HPI and below Eyes Reports no additional complaints ENT Reports no additional complaints Card Reports no additional complaints Resp Reports no additional complaints GI Reports no additional complaints Reports no additional complaints Physical exam (Primary Care) Vital Signs: Last Vital Signs Temp 97.9 F 11/24/24 08:34 Pulse 67 11/24/24 08:34 Resp 18 11/24/24 08:34 BP 124/68 11/24/24 08:34 Pulse Ox 99 11/24/24 08:34 Oxygen Delivery Method Room Air 11/24/24 08:34 BMI result Body Mass Index 32.9 Tobacco/Smoking Status: Tobacco use Status Tobacco use date assessed 11/24/24 11/24/24 08:39 Patient Tobacco Use Status Never used Tobacco 11/24/24 08:39 e-Cigarette/Vaping Use Never Used 11/24/24 08:39 Thrive Assessment: Date of Thrive Assessment Date Thrive assessed 11/24/24 11/24/24 08:40 Currently or been in a relationship where the following occur: I choose not to answer Const General: no acute distress HENMT Head: Yes normal to inspection Ears: hearing grossly normal bilaterally Face and sinus: Yes normal facial exam Throat: Yes posterior oropharynx normal Neck Neck: Yes no lymphadenopathy and Yes supple Resp Effort & Inspection: normal respiratory effort Auscultation: clear to auscultation bilaterally Cardio Rhythm: regular rhythm Heart sounds: S1 normal heart sound present and S2 normal heart sound present GI Inspection: Yes normal to inspection Palpation (GI): Soft to palpation Percussion: Yes normal to percussion Auscultation: normal bowel sounds Back/Spine/Pelvis Other: Paraspinal tenderness in the lower lumbar region. Straight leg rising 90 degrees bilaterally. Coding Level of Care Code Est Pt Level 4 (09559) Complex EM visit Add On G2211 Diagnoses Lumbar stenosis M48.061 Nephrolithiasis N20.0 Hypertension I10 CAD (coronary artery disease) I25.10 Diabetes E11.9 CKD (chronic kidney disease), stage III N18.30 Additional Codes CAROLINA-7 Assessment Billing - CAROLINA-7 Assessment Tool: CAROLINA-7 Assessment 50309 ([id number]) Assessment & Plan Assessment & Plan (1) Lumbar stenosis: Code(s): M48.061 - Spinal stenosis, lumbar region without neurogenic claudication Category: Medical Plan: Referred to physical therapy (2) Nephrolithiasis: Comment: Renal US 12/2019 R side multiple stones largest cluster 1.4 cm, L side 0.3 cm, R side multiple cysts, f/u PVU Code(s): N20.0 - Calculus of kidney Category: Medical Plan: Check renal ultrasound, follow-up with urology and nephrology (3) Hypertension: Comment: Patient is established with Nephrology Code(s): I10 - Essential (primary) hypertension Category: Medical Plan: Continue current medications (4) CAD (coronary artery disease): Comment: Abnormal stress test Lexiscan 02/2024 , coronary artery stenosis LAD 50% on CT 2017, repeat done 04/2024 , follow-up with the Cardiology at [facility], Dr. Daley Code(s): I25.10 - Atherosclerotic heart disease of [place] coronary artery without angina pectoris Category: Medical Plan: Continue current medication high dose of statin and baby aspirin (5) Diabetes: Comment: A1C less than 7.5, f/u , patient could not tolerate GLP 1 agonist or SGLT 2 inhibitor (caused dehydration and worsening renal function) Code(s): E11.9 - Type 2 diabetes mellitus without complications Category: Medical Plan: A1c is 6.7, ADA diet eating regular meals, discussed with the patient continue current medications follow-up with endocrinology every 6 months (6) CKD (chronic kidney disease), stage III: Comment: f/u librarian special collections once a year Code(s): N18.30 - Chronic kidney disease, stage 3 unspecified Category: Medical Plan: Monitor renal function avoid nephrotoxins Orders: Orders Comprehensive [place]. Panel Fast 6 Months E11.9 - Type 2 diabetes mellitus without complications, I10 - Essential (primary) hypertension, N18.30 - Chronic kidney disease, stage 3 unspecified Lipid Panel 6 Months E11.9 - Type 2 diabetes mellitus without complications, I10 - Essential (primary) hypertension, N18.30 - Chronic kidney disease, stage 3 unspecified PT Evaluation and Treatment Today M48.061 - Spinal stenosis, lumbar region without neurogenic claudication US renal BI Today N20.0 - Calculus of kidney Complete Blood Count Auto Diff 6 Months E11.9 - Type 2 diabetes mellitus without complications, I10 - Essential (primary) hypertension, N18.30 - Chronic kidney disease, stage 3 unspecified Hemoglobin A1c 6 Months E11.9 - Type 2 diabetes mellitus without complications, I10 - Essential (primary) hypertension, N18.30 - Chronic kidney disease, stage 3 unspecified Microalbumin, Random (w Creat) 6 Months E11.9 - Type 2 diabetes mellitus without complications, I10 - Essential (primary) hypertension, N18.30 - Chronic kidney disease, stage 3 unspecified Medications: Refilled insulin lispro (Humalog KwikPen (U-100) Insulin) 2 To 12 unts before each meal based on sliding scale subcut 3 times a day; 15 mL 2RF 30 days E11.65 - Type 2 diabetes mellitus with hyperglycemia
--- OUTSIDE RECORDS SUMMARY | 2024-11-24 08:38 | XMS_ITS | Encounter Summary ---
Author Organization [facility], Address [address] [address] Phone Care Team Providers Care Dispatcher Maintenance Name Role Phone Renate Mercado MD Primary Care Provider [phone] Encounter Details Date Type Department Care Team (Late Contact Info) Description 12/04/2021 Documentation Only [facility], [address] [place] [address] Greyson Wu MD [address] [place] [address] [place] [phone] Social History Tobacco Use Types Packs/Day Years Used Date Smoking Tobacco: Unknown Comments Unknown Sex and Gender Information Value Date Recorded Sex Assigned at Not on file Legal Sex Female 2:50 PM EDT Gender Identity Not on file Sexual Orientation Not on file documented as of this encounter Plan of Treatment Upcoming Encounters Date Type Department Care Team (Late st Contact Info) Description 01/14/2025 8:00 AM EDT Office Visit [facility] [address] [address] Fabio Mai MD [address] [phone] documented as of this encounter Visit Diagnoses Not on filedocumented in this encounter Care Teams Dispatcher Maintenance Relationship Specialty Start Date End Date Renate Mercado MD [address] [place] [address] PCP - General Internal Medicine 11/27/19 documented as of this encounter
--- OUTSIDE RECORDS SUMMARY | 2024-11-24 08:38 | XMS_ITS | Referral Summary ---
Author Organization [facility] Address [address] [place] [address] Care Team Providers Care Marine Fireman Name Role Phone Renate Mercado Primary Care Provider [phone] Allergies No known active allergies Medications levothyroxine (SYNTHROID, LEVOTHROID) 50 mcg tablet Take 50 mcg by mouth daily. Active metoprolol tartrate (LOPRESSOR) 50 mg tablet Take 50 mg by mouth 2 times a day. Active metFORMIN (GLUCOPHAGE) 1,000 mg tablet Take 1,000 mg by mouth 2 times a day with meals. Active aspirin 81 mg EC tablet Take by mouth once a day. Active atorvastatin (LIPITOR) 40 mg tablet Take 40 mg by mouth once a day. Active vitamin B complex capsule Take 1 capsule by mouth once a day. Active felodipine ER (PLENDIL) 5 mg tablet Take 5 mg by mouth once a day. Active insulin glargine (LANTUS SOLOSTAR) 100 unit/mL insulin pen Inject 32 Units under the skin nightly. Active insulin lispro injection 100 units/mL vial Inject under the skin 3 times a day before meals. Active allopurinoL (ZYLOPRIM) 100 mg tablet Take 200 mg by mouth once a day. 200 mg daily Active losartan (Cozaar) 100 mg tablet Take 100 mg by mouth once a day. Active cholecalciferol (VITAMIN D3) 400 unit tablet Take 25 Units by mouth once a day. 25mcg daily Active ferrous gluconate (FERGON) 324 mg (37.5 mg iron) tablet tablet Take 65 mg by mouth daily with breakfast. 65mg daily Active Active Problems Problem Noted Date Diagnosed Date Rhinitis 09/24/2012 Nephrolithiasis 09/03/2012 Hepatitis C virus 06/20/2009 Asthma 06/20/2009 Hypertension 06/20/2009 Arthropathy 06/20/2009 Social History Tobacco Use Types Packs/Day Years Used Date Smoking Tobacco: Never Comments:: Comments Unknown Sex and Gender Information Value Date Recorded Sex Assigned at Female 06/12/2023 7:23 PM EST Legal Sex Female 9:38 AM EDT Gender Identity Female 06/12/2023 7:23 PM EST Sexual Orientation Straight 06/12/2023 7: 23 PM EST Last Filed Vital Signs Vital Sign Reading Time Taken Comments Blood Pressure 131/81 08/23/2023 8:48 AM EDT Pulse 76 08/23/2023 8:48 AM EDT Temperature 36.6 C (97.8 F) 09/03/2012 9:18 AM EDT Respiratory Rate - - Oxygen Saturation - - Inhaled Oxygen Concentration - - Weight 94.8 kg (209 lb) 09/03/2012 9:18 AM EDT Height 161.3 cm (5' 3.5 ) 09/03/2012 9:18 AM EDT Body Mass Index 36.44 09/03/2012 9:18 AM EDT Plan of Treatment Not on file Procedures * Due to [place] [employer] law, this organization might not be sharing negative HIV tests. Procedure Name Priority Date/Time Associated Diagnosis Comments COMPREHENSIVE METABOLIC PANEL Routine 01/07/2023 9:57 PM EDT from Last 3 Months or Most Recently Relevant to Health Maintenance Results * Due to [place] [employer] law, this organization might not be sharing negative HIV tests. * (ABNORMAL) Comprehensive Metabolic Panel (01/07/2023 9:57 PM EDT) NA 141 136 - 145 mMOL/L [facility] K 4.0 3.5 - 5.1 mMOL/L [facility] Cl 104 98.0 - 109.0 mMOL/L [facility] CO2 26 23 - 32 mMOL/L [facility] Anion Gap 15 11 - 21 mMOL/L [facility] BUN 22(H) 6 - 20 mg/dL [facility] Creatinine 1.27(H) 0.50 - 1.12 mg/dL [facility] eGFR 47(L) 60- eGFR [facility] Comment: GFR=45-59mL/min/1.73m^2; MODERATELY REDUCED KIDNEY FUNCTION (STAGE G3a) Glucose 160(H) 60 - 99 mg/dL [facility] Calcium 10.0 8.4 - 10.4 mg/dL [facility] Bilirubin, Total 0.38 0.2 - 1.2 mg/dL [facility] AST 23 0 - 33 U/L [facility] ALT 26 0 - 33 U/L [facility] Total Protein 7.5 6.6 - 8.7 g/dL [facility] Albumin 4.9 3.5 - 5.0 gm/dL [facility] Globulin, Total 2.6 1.3 - 3.5 gm/dL [facility] A/G Ratio 1.9 1.5 - 3.0 . 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
--- OUTSIDE RECORDS SUMMARY | 2024-11-24 08:38 | XMS_ITS | Encounter Summary ---
Author Organization [facility] Address [address] [place] [address] Care Team Providers Care Etymology Teacher Name Role Phone Canelo Almanza MD Primary Care Provider [phone] Encounter Details Date Type Department Care Team ([facility] st Contact Info) Description 2019 Orders Only [facility] Urology [address] [place] [address] Janine Miner NP [address] [place] [address] Social History Tobacco Use Types Packs/Day Years Used Date Smoking Tobacco: Never Smokeless Tobacco: Never Alcohol Use Standard Drinks/Week Comments Not Asked 0 (1 standard drink = 0.6 oz pur e alcohol) Comments No Sex and Gender Information Value Date Recorded Sex Assigned at Not on file Legal Sex Female 1:39 AM EDT Gender Identity Not on file Sexual Orientation Not on file documented as of this encounter Progress Notes * Janine Miner NP - 2019 1:06 PM EDT LM 02/09 documented in this encounter Plan of Treatment Not on file documented as of this encounter Procedures * Due to [place] state law, this organization might not be sharing negative HIV tests. Procedure Name Priority Date/Time Associated Diagnosis Comments KIDNEY STONE FORMATION RISK DIAGNOSTIC PROFILE, 24HR URINE Routine 2019 1:06 PM EDT Kidney stones documented in this encounter Results * Due to [place] state law, this organization might not be sharing negative HIV tests. * (ABNORMAL) KIDNEY STONE FORMATION RISK DIAGNOSTIC PROFILE, 24HR URINE (2019 1:06 PM EDT) Specimen volume (24Hr Urine) 0.77(L) >2.00 L/day [facility] pH (24Hr Urine) 5.6 5.5 - 7.0 [facility] Calcium (24Hr Urine) 60 <250 mg/day [facility] Oxalate (24Hr Urine) 41 <45 mg/day [facility] Uric Acid, 24Hr Urine 148 <700 mg/day [facility] Citrate (24Hr Urine) 272(L) >320 mg/day [facility] Sodium (24Hr Urine) 63 <200 mEq/day [facility] Sulfate (24Hr Urine) 11 <30 mmol/da y [facility] Phosphate (24Hr Urine) 217 <1100 mg/day [facility] Magnesium (24Hr Urine) 21(L) >60 mg/day [facility] Ammonia (24Hr Urine) 20 14 - 62 mEq/day [facility] Potassium (24Hr Urine) 27 19 - 135 mEq/day [facility] Creatinine (24Hr Urine) 850 600 - 1800 mg/day [facility] Calcium oxalate index (24Hr Urine) 3.40(H) <2.00 [facility] Calcium hydrogen phosphate dihydrate (Brushite) 0.20 <2.00 [facility] Sodium urate (24Hr Urine) 0.86 <2.00 [facility] Triple phosphate (Struvite) 0.03 <75.00 [facility] Urate (24Hr Urine) 1.55 <2.00 [facility] Patient history See Below [facility] Comment: Hypocitraturia Low urine volume SUPERSATURATION INDEX WITH RESPECT TO Calcium oxalate [facility] 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 This test was developed and its analytical performance characteristics have been determined by [facility]. It has not been cleared or approved by the US Food and Drug Administration. This assay has been validated pursuant to the CLIA regulations and is used for clinical purposes. 2019 1:06 PM EDT 2019 4:08 PM EDT Narrative Resulting Agency Comment [id number] us Janine Miner [facility] Final Re sult [facility] [address] [place] [address] documented in this encounter Visit Diagnoses Diagnosis Kidney stones Calculus of kidney documented in this encounter Care Teams Etymology Teacher Relationship Specialty Start Date End Date Canelo Almanza MD [address] [address] PCP - General Internal Medicine 10/29/18 documented as of this encounter
--- OUTSIDE RECORDS SUMMARY | 2024-11-24 08:38 | XMS_ITS | Patient Health Record ---
Author Organization [facility] Address [address] [place] [address] Care Team Providers Care Compress Engineer Name Role Phone Renate Mercado MD Primary Care Provider Vargas Mari Jr Unavailable Allergies Allergen (clinical drug ingredient) Drug/Non Drug Allergy documented on EMR Reaction Allergy Type Onset Date Status liraglutide Victoza Unknown Drug Allergy Activ e sulfamethoxazole / trimethoprim Bactrim Unknown Drug Allergy Active Reason For Referral No Information Medications Medication SIG (Take, Route, Frequency, Duration) Notes Start Date End Date Status Losartan Potassium 100 MG Oral for 90 Active Yuvafem 10 MCG Vaginal for 84 Active Lantus SoloStar 100 UNIT/ML Subcutaneous for 85 Active Felodipine ER 5 MG Oral for 90 Active HumaLOG KwikPen 100 UNIT/ML Subcutaneous for 41 Active Metoprolol Tartrate 50 MG Oral for 90 Active Iron (Ferrous Sulfate) 325 (65 Fe) MG 1 tablet Orally Once a day for 30 day(s) Active Levothyroxine Sodium 50 MCG Oral for 90 Active MiraLax (colon prep) 17 GM/SCOOP mixed with Gatorade or Crystal Light Orally begin at 5:00 p.m. the day before the procedure for 1 day 04/27/2021 Active Aspirin Adult Low Dose 81 MG 1 tablet Orally Once a day for 30 day(s) Active Vitamin D3 50 MCG (2000 UT) Oral for 90 Active Vitamin B-12 1000 MCG Oral for 90 Active metFORMIN HCl ER 500 MG Oral for 90 Active Methenamine Hippurate 1 GM Oral for 90 Active Atorvastatin Calcium 40 MG Oral for 90 Active Immunizations Vaccine Route Administration Date Status Comme nts Influenza Unknown 04/27/2021 Refused Social History Tobacco Use: Social History Observation Description Date Details (start date - stop date) Never Smoker NA - NA Tobacco Use/Smoking Question Answer Notes Patient is a nonsmoker Alcohol Screen Question Answer Notes Did you have a drink containing alcohol in the p ast year? No Points 0 Interpretation Negative Problems Problem Type SNOMED Code ICD Code Onset Dates Problem Status W/U Status Risk Notes Problem [id number] Change in bowel habits (R19.4) Active confirmed Plan Of Treatment Future Test Test Name Order Date COLONOSCOPY 04/27/2021 Insurance Providers Payer Name Payer Address Payer Phone Subscriber Number Group Number Insured Name Patient Relationship to Insured Coverage Start Date Coverage End Date MEDICARE OF [place] [address] [place] [id number] [phone] [id number] ELIO ANIBAL Self - patient is the insured MEDICAID OF [facility] [address] [place] [address] [phone] [id number] ELIO, ANIBAL Self - patient is the insured Medical (General) History Medical History History ICD Code type II diabetes hypertension Coronary artery disease/CO, (mild heart attack per patient) 2014 Nephrolithiasis Chronic kidney disease stage III Chronic hepatitis C, SVR following [place] therapy Colonoscopy 04/09/17, hyperplastic polyp , prior history of tubular adenomas. Surgical History Surgery Date(Month/Year) gallbladder 2008 2 surgerys kidney
--- OUTSIDE RECORDS SUMMARY | 2024-11-24 08:38 | XMS_ITS | Clinical Summary ---
Author Organization [facility] [address] [facility] Address [address] [place] [address] Phone Care Team Providers Care Dials Supervisor Name Role Phone Physician, Pcp Unknown Primary Care Provider Zulema vailable Allergies Active Allergy Reactions Criticality Noted Date Comments Liraglutide Nausea And Vomiting,Other,Unkno wn High 06/30/2017 Other reaction(s): Unknown Sulfamethoxazole-Trimet hoprim Nausea And Vomiting,Unknown High 10/14/2017 Trimethoprim Nausea And Vomiting High 12/19/2021 Medications amLODIPine (NORVASC) 2.5 mg tablet 1 TABLETS DAILY 8 Active ibuprofen (ADVIL,MOTRIN) 600 mg tablet 1 TABLET 3 TIMES DAILY WITH FOOD 8 Active VITAMIN B COMPLEX ORAL Take 1 capsule by mouth 1 (one) time each day. Active pantoprazole (PROTONIX) 40 mg EC tablet Take 1 tablet (40 mg total) by mouth 1 (one) time each day. 4 Active metoprolol tartrate (LOPRESSOR) 50 mg tablet Take 1 tablet (50 mg total) by mouth 2 times daily. 9 Active metFORMIN (GLUCOPHAGE) 1,000 mg tablet Take 1 tablet (1,000 mg total) by mouth 2 (two) times a day with meals. Active losartan (COZAAR) 100 mg tablet Take 1 tablet (100 mg total) by mouth 1 (one) time each day. Active levothyroxine (SYNTHROID, LEVOTHROID) 50 mcg tablet TAKE 1 TABLET BY MOUTH DAILY 6 DAYS PER WEEK, SKIP DAY Active INSULIN LISPRO SUBQ Inject under the skin. Active insulin glargine (Lantus Solostar U-100 Insulin) 100 unit/mL (3 mL) injection pen Inject 32 Units under the skin at bedtime. 4 Active ferrous sulfate 325 mg (65 mg elemental iron) tablet Take 1 tablet (325 mg total) by mouth. 9 Active felodipine (PLENDIL) 5 mg 24 hr tablet Take 1 tablet (5 mg total) by mouth. 0 Active cyanocobalamin, vitamin B-12, 1,000 mcg tablet, sublingual Place under the tongue. 9 Active cholecalciferol (VITAMIN D-3) 1,250 mcg (50,000 unit) capsule Take by mouth. Activ e atorvastatin (LIPITOR) 40 mg tablet Take 1 tablet (40 mg total) by mouth 1 (one) time each day. Active aspirin 81 mg EC tablet Take by mouth. 9 Active allopurinoL (ZYLOPRIM) 100 mg tablet Take 1 tablet (100 mg total) by mouth 1 (one) time each day. 4 Active dicyclomine (BENTYL) 20 mg tabletIndicatio ns:Irritable bowel syndrome (IBS) TAKE 1 TABLET BY MOUTH THREE TIMES A DAY DIRECTED 270 tablet 1 4 Active loperamide (IMODIUM A-D) 2 mg tablet Take 1 tablet (2 mg total) by mouth if needed for diarrhea. Active polyethylene glycol (Golytely) 236-22.74-6.74 -5.86 gram solution Take 4L by mouth once for one dose. May substitue any PEG. Starting at 6PM the night before your procedure drink 1 8oz glasses at your own pace until you complete half of the gallon. Finish 2nd half of the gallon 5 hours before your procedure. 4000 mL 5 Active bisacodyL (DULCOLAX) 5 mg EC tablet Take 2 tablets by mouth right before beginning bowel prep. See instructions provided by the office 2 tablet 5 Active cholecalciferol (VITAMIN D-3) 25 mcg (1,000 unit) tablet Take 1 tablet (1,000 Units total) by mouth 1 (one) time each day. Active Active Problems Problem Noted Date Diagnosed Date Diabetes mellitus (CMS/[facility]ER[facility] V24, CMS/FORMER[facility] V28) Colon polyps 07/02/2024 Assessment & Plan (07/02/2024 9:30 AM EST): Last colon [address] García. Early due to heme + stool. Hypothyroid 07/02/2024 Hyperlipidemia 07/02/2024 Pharyngoesophageal dysphagia 04/01/2024 Assessment & Plan (07/02/2024 9:30 AM EST): Non obstructing ring seen on barium swallow Black stool 04/01/2024 Diarrhea 04/01/2024 Assessment & Plan (07/02/2024 9:30 AM EST): Cont Imodium prn Heartburn 04/01/2024 Heme positive stool 04/01/2024 HTN (hypertension) 06/11/2007 Overview (03/04/2024): 06/20 echo preserved lvef 06/20 holter normal H/o kidney stones and hence i will change the hctz 06/20 Fibromyalgia 06/03/2007 Overview (03/04/2024): Dr charles Hepatitis C 05/28/2007 Overview (03/04/2024): Genotype 1A; 56,000 copies as of May,.dr Estevez Elevated liver enzymes 05/19/2007 Overview (03/04/2024): Labs in 05/[address] garcia 05/20Normal ultrasound of the upper abdomen Backache 03/01/2006 Overview (03/04/2024): disc disease.no records availble apparently has contract with dr pb avilez-not a surgical candidate Dr navin GARCIA update Calculus of gallbladder w/o mention of cholecystitis or obstruction 03/01/2006 Overview (03/04/2024): S/p cholecystectomy Disorder of skin or subcutaneous tissue 03/01/20 Overview (03/04/2024): followed by dr castellon-rafa [facility] [place] Obesity 03/01/2006 Osteoarthrosis 03/01/2006 Overview (03/04/2024): seen by dr asaf lu O update Encounters Date Type Department Care Team Description 09/25/2024 Telephone Gastroenterology - [address] [place] [phone] Janine Retana [place] 09/24/2024 7:33 AM EDT Anesthesia Event [facility] [address] [place] [phone] Viji Jacobs MD Georgette, Nathaniel, CRNA 09/24/2024 6:54 AM EDT - 09/24/2024 11:59 PM EDT Hospital Encounter [facility] [address] [place] [phone] Renate Fraga MD Georgette, Nathaniel, CRNA Kriz, Petra, MD Positive FIT (fecal immunochemical test); Pharyngoesophageal dysphagia; Adenomatous polyp of colon, unspecified part of colon; Gastroesophageal reflux disease, unspecified whether esophagitis present Discharge Disposition: Home or Self Care from Last 3 Months Surgical History Surgery Date Site/Laterality Comments CHOLECYSTECTOMY 2005 PROCEDURE: HISTORICAL CHOLECYSTECTOMY COLONOSCOPY 06/13/2021 - 07/10/2021 inflammatory right colon polyp, hp x2 distal, sig tics, nl TI biopsy, unremarkable right colon biopsy KIDNEY STONE SURGERY N/A Medical History Medical History Date Comments Hepatitis C 05/28/2007 DX:Hepatitis C; COMMENT: Genotype 1A; 56,000 copies as of May,. Hyperlipidemia Hypertension GERD (gastroesophageal reflux disease) Diabetes mellitus (CMS/HCC V 24, CMS/HCC V28) Family History Medical History Relation Name Comments Hypertension Mother Crohn's disease Sister Relation Name Status Comments Brother Alive 2 step bro-not sure Father Alive vang snot know s abi adopted Mother Alive asthma Sister Alive 2 step sis-one mildly retarded Social History Tobacco Use Types Packs/Day Years Used Date Smoking Tobacco: Never Tobacco Cessation:Counseling Given: Not Answered Alcohol Use Standard Drinks/Week Comments Not Currently 0 (1 standard drink = 0.6 oz pur e alcohol) Interpersonal Safety Answer Date Record ed Physical Abuse 09/24/2024 Verbal Abuse 09/24/2024 Comments Unknown Sex and Gender Information Value Date Recorded Sex Assigned at Not on file Legal Sex Female 3:03 AM EST Gender Identity Not on file Sexual Orientation Not on file Obstetrics History Last Filed Vital Signs Vital Sign Reading Time Taken Comments Blood Pressure 118/76 09/24/2024 8:20 AM EDT Pulse 78 09/24/2024 8:20 AM EDT Temperature 36.1 C (97 F) 09/24/2024 8:00 AM EDT Respiratory Rate 18 09/24/2024 8:20 AM EDT Oxygen Saturation 98% 09/24/2024 8:20 AM EDT Inhaled Oxygen Concentration - - Weight 85.7 kg (189 lb) 09/24/2024 7:15 AM EDT Height 160 cm (5' 3 ) 09/16/2024 2:00 PM EDT Body Mass Index 33.48 09/16/2024 2:00 PM EDT Plan of Treatment Health Maintenance Due Date Last Done Comments Breast Cancer Screening 1965 Diabetes: Annual Foot Exam 1977 Diabetes: Annual Retina Eye Exam 1977 Hepatitis A Vaccines (1 of 2 - Risk 2-dose series) 1986 Hepatitis B Vaccines (1 of 3 - 19+ 3-dose series) 1986 Cervical Cancer Screening: Pap Smear 03/01/2008 03/01/2005 Pneumococcal Vaccine: 50+ Years (2 of 2 - PCV) 02/27/2012 02/26/2011 Zoster Vaccines (1 of 2) 2017 DTaP,Tdap,and Td Vaccines (4 - Td or Tdap) 09/11/2019 09/10/2009, 02/24/2005, 08/15/2004 Cholesterol Screening (Lipid Panel) 04/15/2022 03/08/2006 Depression Screening 04/15/2022 HIV Screening 04/15/2022 Medicare Annual Wellness Visit 04/15/2022 Social Influencers of Health Screening 04/15/2022 COVID-19 Vaccine ( season) 2024 03/18/2021, 07/30/2020, 07/02/2020 Diabetes: Blood Sugar Control Test (HGBA1C) 04/02/2024 07/05/2021 Diabetes: Annual Urine Albumin-Creatinine Ratio (uACR) 07/24/2024 07/25/2023, 08/17/2022 Diabetes: Annual GFR (Glomerular Filtration Rate) 01/10/2025 01/11/2024, 01/11/2024, 01/07/2023, Additional history exists Hypertension/CHF/CAD Annual BMP Blood Test 01/10/2025 01/11/2024, 01/11/2024, 01/07/2023, Additional history exists Influenza Vaccine (#1) 2025 Colorectal Cancer Screening: Colonoscopy 09/24/2034 09/24/2024 Hepatitis C Screening Completed 06/03/2007 HIB Vaccines Aged Out No longer eligi ble based on patient's age to complete this topic HPV Vaccines Aged Out No longer eligi ble based on patient's age to complete this topic IPV Vaccines Aged Out No longer eligi ble based on patient's age to complete this topic MMR Vaccines Aged Out No longer eligi ble based on patient's age to complete this topic Meningococcal ACWY Vaccine Aged Out N o longer eligible based on patient's age to complete this topic Meningococcal B Vaccine Aged Out No l onger eligible based on patient's age to complete this topic RSV Immunization Patients Under 20 months Aged Out No longer eligible based on patient's age to complete this topic Varicella Vaccines Aged Out No longer eligible based on patient's age to complete this topic Procedures Procedure Name Priority Date/Time Associated Diagnosis Comments COLONOSCOPY Routine 09/24/2024 8:00 AM EDT Positive FIT (fecal immunochemical test) Pharyngoesophageal dysphagia Adenomatous polyp of colon, unspecified part of colon Gastroesophageal reflux disease, unspecified whether esophagitis present EGD Routine 09/24/2024 8:00 AM EDT Positive FIT (fecal immunochemical test) Pharyngoesophageal dysphagia Adenomatous polyp of colon, unspecified part of colon Gastroesophageal reflux disease, unspecified whether esophagitis present TISSUE EXAM Routine 09/24/2024 7:41 AM EDT Positive FIT (fecal immunochemical test) Pharyngoesophageal dysphagia Adenomatous polyp of colon, unspecified part of colon Gastroesophageal reflux disease, unspecified whether esophagitis present ANNUAL BMP BLOOD TEST Routine 06/18/2007 HEPATITIS C SCREENING Routine 06/03/2007 LIPID PANEL Routine 03/08/2006 PAP SMEAR Routine 03/01/2005 from Last 3 Months or Most Recently Relevant to Health Maintenance Results * COLONOSCOPY Anesthesia - MAC; [facility] ENDOSCOPY (09/24/2024 8:00 AM EDT) Anatomical Region Laterality Modality Endoscopy 09/24/2024 7:44 AM EDT Impressions 09/24/2024 8:01 AM EDT - The examined portion of the ileum was normal. - Diverticulosis in the entire examined colon. - One 6 mm polyp in the sigmoid colon, removed with a hot snare. Resected and retrieved. - Internal hemorrhoids. - The examination was otherwise normal. Recommendation: - Await pathology results. - Repeat colonoscopy for surveillance based on pathology results. Narrative 09/24/2024 8:01 AM EDT [facility] GI Patient Name: Yamel Ballard Procedure Date: 09/24/2024 7:44 AM Date of : 1965 Age: 59 Gender: Female Note Status: Finalized Attending MD: Renate Fraga MD, Procedure Date No Time: 09/24/2024 Procedure: Colonoscopy Indications: Heme positive stool Providers: Renate Fraga MD Referring MD: Renate Mercado MD Medicines: Propofol per Anesthesia Complications: No immediate complications. Estimated Blood Loss: Estimated blood loss: none. Procedure: Pre-Anesthesia Assessment: - ASA Grade Assessment: II - A patient with mild systemic disease. After I obtained informed consent, the scope was passed under direct vision. Throughout the procedure, the patient's blood pressure, pulse, and oxygen saturations were monitored continuously.The Colonoscope was introduced through the anus and advanced to the terminal ileum. The colonoscopy was performed without difficulty. The patient tolerated the procedure well. The quality of the bowel preparation was good. Findings: The perianal and digital rectal examinations were normal. The terminal ileum appeared normal. Multiple small-mouthed diverticula were found in the entire colon. A 6 mm polyp was found in the sigmoid colon. The polyp was semi-pedunculated. The polyp was removed with a hot snare. Resection and retrieval were complete. Internal hemorrhoids were found during retroflexion. The hemorrhoids were Grade I (internal hemorrhoids that do not prolapse). The exam was otherwise without abnormality. Procedure Code(s): --- Professional --- 25461, Colonoscopy, flexible; with removal of tumor(s), polyp(s), or other lesion(s) by snare technique Diagnosis Code(s): --- Professional --- D12.5, Benign neoplasm of sigmoid colon R19.5, Other fecal abnormalities CPT copyright 2020 [employer]. All rights reserved. The codes documented in this report are preliminary and upon facilities technician review may be revised to meet current compliance requirements. Renate Fraga MD 09/24/2024 8:01:22 AM This report has been signed electronically.Renate Fraga MD Number of Addenda: 0 Note Initiated On: 09/24/2024 7:44 AM Scope In: Scope Out: Endoscopy Department at [facility] - [address] [place] [phone] Procedure Note Renate Fraga MD - 09/24/2024 [facility] GI Patient Name: Yamel Ballard Procedure Date: 09/24/2024 7:44 AM Date of : 1965 Age: 59 Gender: Female Note Status: Finalized Attending MD: Renate Fraga MD, Procedure Date No Time: 09/24/2024 Procedure: Colonoscopy Indications: Heme positive stool Providers: Renate Fraga MD Referring MD: Renate Mercado MD Medicines: Propofol per Anesthesia Complications: No immediate complications. Estimated Blood Loss: Estimated blood loss: none. Procedure: Pre-Anesthesia Assessment: - ASA Grade Assessment: II - A patient with mild systemic disease. After I obtained informed consent, the scope was passed under direct vision. Throughout theprocedure, the patient's blood pressure, pulse, and oxygen saturations were monitored continuously.The Colonoscope was introduced through the anus and advanced to the terminal ileum. The colonoscopy was performed without difficulty. The patient tolerated the procedure well. The quality of the bowel preparation was good. Findings: The perianal and digital rectal examinations were normal. The terminal ileum appeared normal. Multiple small-mouthed diverticula were found inthe entire colon. A 6 mm polyp was found in the sigmoid colon. Thepolyp was semi-pedunculated. The polyp was removed with a hot snare. Resection and retrieval were complete. Internal hemorrhoids were found duringretroflexion. The hemorrhoids were Grade I (internal hemorrhoids that do not prolapse). The exam was otherwise without abnormality. Procedure Code(s): --- Professional --- 37571, Colonoscopy, flexible; with removal of tumor(s), polyp(s), or other lesion(s) by snare technique Diagnosis Code(s): --- Professional --- D12.5, Benign neoplasm of sigmoid colon R19.5, Other fecal abnormalities CPT copyright 2020 [employer]. All rights reserved. The codes documented in this report are preliminary and upon facilities technician reviewmay be revised to meet current compliance requirements. Renate Fraga MD 09/24/2024 8:01:22 AM This report has been signed electronically.Renate Fraga MD Number of Addenda: 0 Note Initiated On: 09/24/2024 7:44 AM Scope In: Scope Out: Endoscopy Department at [facility] - [address] [place] [phone] IMPRESSION: - The examined portion of the ileum was normal. - Diverticulosis in the entire examined colon. - One 6 mm polyp in the sigmoid colon, removed witha hot snare. Resected and retrieved. - Internal hemorrhoids. - The examination was otherwise normal. Recommendation: - Await pathology results. - Repeat colonoscopy for surveillance based on pathology results. Renate Fraga MD GI~PROCEDURE ORDERABLES Final Result * EGD Dilation; Anesthesia - MAC; [facility] ENDOSCOPY (09/24/2024 8:00 AM EDT) Anatomical Region Laterality Modality Endoscopy 09/24/2024 7:37 AM EDT Impressions 09/24/2024 7:44 AM EDT - Normal esophagus. Biopsied. - Normal stomach. Biopsied. - Normal examined duodenum. Recommendation: - Continue present medications. - Await pathology results. Narrative 09/24/2024 7:44 AM EDT [facility] Patient Name: Yamel Ballard Procedure Date: 09/24/2024 7:37 AM Date of : 1965 Age: 59 Gender: Female Note Status: Finalized Attending MD: Renate Fraga MD, Procedure Date No Time: 09/24/2024 Procedure: Upper GI endoscopy Indications: Dysphagia, Follow-up of gastro-esophageal reflux disease Providers: Renate Fraga MD Referring MD: Renate Mercado MD Medicines: Propofol per Anesthesia Complications: No immediate complications. Estimated Blood Loss: Estimated blood loss: none. Procedure: Pre-Anesthesia Assessment: - ASA Grade Assessment: II - A patient with mild systemic disease. After obtaining informed consent, the endoscope was passed under direct vision. Throughout the procedure, the patient's blood pressure, pulse, and oxygen saturations were monitored continuously.The Olympus Gastroscope was introduced through the mouth, and advanced to the second part of duodenum. The upper GI endoscopy was accomplished without difficulty. The patient tolerated the procedure well. Findings: The examined esophagus was normal. Biopsies were taken with a cold forceps for histology. The entire examined stomach was normal. Biopsies were taken with a cold forceps for histology. The cardia and gastric fundus were normal on retroflexion. The examined duodenum was normal. Procedure Code(s): --- Professional --- 00909, Esophagogastroduodenoscopy, flexible, transoral; with biopsy, single or multiple Diagnosis Code(s): --- Professional --- R13.10, Dysphagia, unspecified K21.9, Gastro-esophageal reflux disease without esophagitis CPT copyright 2020 [employer]. All rights reserved. The codes documented in this report are preliminary and upon facilities technician review may be revised to meet current compliance requirements. Renate Fraga MD 09/24/2024 7:44:45 AM This report has been signed electronically.Renate Fraga MD Number of Addenda: 0 Note Initiated On: 09/24/2024 7:37 AM Scope In: Scope Out: Endoscopy Department at [facility] - [address] [place] [phone] Procedure Note Renate Fraga MD - 09/24/2024 [facility] GI Patient Name: Yamel Ballard Procedure Date: 09/24/2024 7:37 AM Date of : 1965 Age: 59 Gender: Female Note Status: Finalized Attending MD: Renate Fraga MD, Procedure Date No Time: 09/24/2024 Procedure: Upper GI endoscopy Indications: Dysphagia, Follow-up of gastro-esophageal reflux disease Providers: Renate Fraga MD Referring MD: Renate Mercado MD Medicines: Propofol per Anesthesia Complications: No immediate complications. Estimated Blood Loss: Estimated blood loss: none. Procedure: Pre-Anesthesia Assessment: - ASA Grade Assessment: II - A patient with mild systemic disease. After obtaining informed consent, the endoscope was passed under direct vision. Throughout theprocedure, the patient's blood pressure, pulse, and oxygen saturations were monitored continuously.The Olympus Gastroscope was introduced through the mouth, and advanced to the second part of duodenum. The upperGI endoscopy was accomplished without difficulty. The patient tolerated the procedure well. Findings: The examined esophagus was normal. Biopsies weretaken with a cold forceps for histology. The entire examined stomach was normal. Biopsieswere taken with a cold forceps for histology. The cardia and gastric fundus were normal on retroflexion. The examined duodenum was normal. Procedure Code(s): --- Professional --- 21926, Esophagogastroduodenoscopy, flexible, transoral; with biopsy, single or multiple Diagnosis Code(s): --- Professional --- R13.10, Dysphagia, unspecified K21.9, Gastro-esophageal reflux disease without esophagitis CPT copyright 2020 [employer]. All rights reserved. The codes documented in this report are preliminary and upon facilities technician reviewmay be revised to meet current compliance requirements. Renatemary jane Fraga MD 09/24/2024 7:44:45 AM This report has been signed electronically.Renate Fraga MD Number of Addenda: 0 Note Initiated On: 09/24/2024 7:37 AM Scope In: Scope Out: Endoscopy Department at [facility] - [address] [place] [phone] IMPRESSION: - Normal esophagus. Biopsied. - Normal stomach. Biopsied. - Normal examined duodenum. Recommendation: - Continue present medications. - Await pathology results. Renate Fraga MD GI~PROCEDURE ORDERABLES Final Result * Tissue exam (09/24/2024 7:41 AM EDT) Final Diagnosis A. Stomach, biopsy: - Gastric antral- and oxyntic- type mucosa with scant chronic inflammation, vascular congestion and a rare focus of superficial edema. - No active gastritis and no intestinal metaplasia identified. - No Helicobacter pylori identified on hematoxylin and eosin stained sections. B. Esophagus, biopsy: - Esophageal squamous mucosa with reactive changes including focal parakeratosis and spongiosis. - No intraepithelial eosinophils and no glandular epithelium identified. C. Polyp, sigmoid colon, polypectomy: - Inflamed hyperplastic polyp with focal ulceration and underlying granulation tissue. 09/25/2024 9:39 AM EDT [facility] ([facility]) [facility] Gross Description A. Stomach, gastric: Labeled stomach biopsies . Received in formalin, are four irregular soft to rubbery, castrejon-pink to red tissue fragments, approximately ranging from 0.4 cm to 0.5 cm in greatest diameters, which are wrapped in paper and submitted in toto in one cassette, four pieces, multiple levels. B. Esophagus, : Labeled esophagus biopsy . Received in formalin, are five irregular soft to friable, white-pink to red tissue fragments, approximately ranging from 0.2 cm to 0.55 cm in greatest diameters, which are wrapped in paper and submitted in toto in one cassette, five pieces, multiple levels. dvb/DG C. Large Intestine, Sigmoid Colon, polyp x1: Labeled sig colon polyp x 1 . Received in formalin, is an approximately 0.4 x 0.4 x 0.2 cm rubbery, castrejon-red, polypoid tissue, which is inked green at the base, bisected, wrapped in paper and submitted in entirety in one cassette, two pieces, multiple levels. dvb/DG 09/25/2024 9:39 AM EDT [facility] Disclaimer Unless otherwise specified, all tissue is 10% NB formalin fixed and paraffin embedded. 09/25/2024 9:39 AM EDT [facility] Tissue Stomach structure / Unknown 09/24/2024 7:41 AM EDT 09/24/2024 10:36 AM EDT Tissue specimen (specimen) Esophageal structure / Unknown 09/24/2024 7:42 AM EDT 09/24/2024 10:36 AM EDT Tissue specimen (specimen) Sigmoid colon structure / Unknown 09/24/2024 7:59 AM EDT 09/24/2024 10:36 AM EDT Renate Fraga MD LAB PATHOLOGY ORDERABLES Final Result [facility] [address] [place] [address], * Annual BMP Blood Test (06/18/2007) [facility] Annual BMP Blood Test Abstracted [facility] Provider HEALTH MAINTENANCE Final Result * Hepatitis C Screening (06/03/2007) [facility] Hepatitis C Screening Abstracted [facility] Provider HEALTH MAINTENANCE Final Result * (ABNORMAL) Lipid panel (03/08/2006) [facility] LDL/HDL Ratio 4 0 - 4 Triglycerides 80 0 - 150 mg/dL Cholesterol 216(A) 0 - 200 mg/dL HDL 51 >=40 mg/dL LDL Cholesterol 149(A) 0 - 100 mg/dL Blood Venous blood specimen / Unknown Historical Provider LAB BLOOD ORDERABLES Rena l Result * Pap Smear (03/01/2005) Pap smear No interpretation with ,abstracted us Historical Provider HEALTH MAINTENANCE Final Result from Last 3 Months or Most Recently Relevant to Health Maintenance Insurance MEDICARE MEDICAID - [place] Care Teams Dials Supervisor Relationship Specialty Start Date End Date Physician, Pcp Unknown PCP - General 06/10/24
--- OUTSIDE RECORDS SUMMARY | 2024-11-24 08:38 | XMS_ITS | Clinical Summary ---
Author Organization [employer] Address [address] [place] [address] Care Team Providers Care Rubber Block Layer Name Role Phone Renate Mercado MD Primary Care Provider [phone] Allergies Active Allergy Reactions Criticality Noted Date Comments Sulfamethoxazole-Trimethoprim 2017 Sulfa (Sulfonamide Antibiotics) 06/13 Liraglutide 06/30/2017 Medications BD INSULIN PEN NEEDLE UF MINI 31 gauge x 07/26 ndle 0 7 Active metoprolol (LOPRESSOR) 50 MG tablet TAKE 1 TABLET BY MOUTH TWICE A DAY 11 8 Active metFORMIN (GLUCOPHATE-XR ) 500 MG 24 hr tablet 1 8 Active levothyroxine (SYNTHROID, LEVOTHROID) 50 MCG tablet TAKE 1 TABLET BY MOUTH EVERY MORNING ON A EMPTY STOMACH 8 Active LANTUS SOLOSTAR 100 unit/mL (3 mL) inpn 1 8 Active atorvastatin (LIPITOR) 40 MG tablet TAKE 1 TABLET BY MOUTH ONCE DAILY X 30 DAYS 8 Active VITAMIN D3 2,000 unit cap TAKE 1 CAPSULE BY MOUTH EVERY DAY WITH DINNER 8 Active HUMALOG KWIKPEN INSULIN 100 unit/mL inpn INJECT 5 UNITS SUBCUTANEOUSLY BEFORE MEALS THREE TIMES A DAY 11 8 Active ferrous sulfate 325 (65 FE) MG tablet TAKE 1 TABLET BY MOUTH EVERY DAY 11 9 Active GLUCOPHAGE 500 mg tablet 9 Active metFORMIN (GLUCOPHAGE) 500 MG tablet TAKE 2 TABLETS BY MOUTH TWICE A DAY WITH MEALS 6 9 Active ONETOUCH DELICA LANCETS 33 gauge misc USE DIRECTED 3 TIMES A DAY 3 9 Active VITAMIN D3 2,000 unit cap TAKE ONE CAPSULE BY MOUTH DAILY WITH DINNER 11 9 Active aspirin 81 MG tablet TAKE 1 TABLET BY MOUTH EVERY DAY 11 9 Active FREESTYLE LITE STRIPS strp TEST 3 TIMES A DAY DIRECTED 3 9 Active cloNIDine HCl (CATAPRES) 0.2 MG tablet TAKE 1 TABLET BY MOUTH TWICE A DAY 11 9 Active cyanocobalamin , vitamin B-12, 1,000 mcg subl DISSOLVE 1 TABLET UNDER THE TONGUE ONCE DAILY 11 9 Active ferrous sulfate 325 (65 FE) MG tablet TAKE 1 TABLET BY MOUTH EVERY DAY 11 9 Active BD ULTRA-FINE MAYDA PEN NEEDLE 32 gauge x 32 ndle INJECT INSULIN 4 TIMES DAILY DIRECTED 11 9 Active losartan (COZAAR) 100 MG tablet Take 100 mg by mouth daily. Active felodipine (PLENDIL) 5 MG 24 hr tablet Take 5 mg by mouth. 0 Active methenamine (HIPREX) 1 gram tablet Take 1 g by mouth. 1 Active aspirin 81 MG tablet Take by mouth. Activ e cholecalcifero l, vitamin D3, 50 mcg (2,000 unit) cap Take by mouth. 9 Active cyanocobalamin , vitamin B-12, 1,[address] under the tongue. 9 Active ferrous sulfate 325 (65 FE) MG tablet Take 325 mg by mouth. 9 Active insulin glargine (LANTUS) 100 unit/mL injection Inject subcutaneously. Active insulin lispro (HumaLOG) 100 unit/mL injection Inject subcutaneously. Active levothyroxine (SYNTHROID) 50 MCG tablet Take by mouth. 9 Active metFORMIN (GLUCOPHAGE) 1000 MG tablet Take by mouth. Active metoprolol (LOPRESSOR) 50 MG tablet Take 50 mg by mouth. 9 Active Social History Tobacco Use Types Packs/Day Years Used Date Smoking Tobacco: Never Smokeless Tobacco: Never Comments No Sex and Gender Information Value Date Recorded Sex Assigned at Not on file Legal Sex Female 10:37 AM EST Gender Identity Not on file Sexual Orientation Not on file Last Filed Vital Signs Vital Sign Reading Time Taken Comments Blood Pressure 120/78 06/05/2021 10:34 AM EST Pulse 70 06/05/2021 10:34 AM EST Temperature 35.9 C (96.7 F) 06/05/2021 10:34 AM EST Respiratory Rate 18 06/05/2021 10:34 AM EST Oxygen Saturation 98% 06/05/2021 10:34 AM EST Inhaled Oxygen Concentration - - Weight 110 kg (243 lb) 06/30/2017 11:25 AM EST Height - - Body Mass Index - - Plan of Treatment Health Maintenance Due Date Last Done Comments Colorectal Cancer: COLONOSCO PY Screening every 10 yrs (or Modifier) 1967 Depression: Screening Annual ly using PHQ-2/9 in Adults 18 yrs or above (or HM Modifier)([facility]) 1985 Hepatitis C Virus Infection in Adolescents and Adults: Screening (or Modifier) ([facility]) 1985 SDOH Screening Reminder: Maris reese for all adults ([facility]) 1985 Tobacco Smoking Cessation: i n Adults excluding Women: Behavioral and Pharmacotherapy Interventions ([facility]) 1985 DTaP/Tdap/Td Vaccines ([facility]) (1 - Tdap) 1986 Cervical Cancer Screenin 1-65 yrs of age (or Modifier) 02/02/1988 Cervical Cancer Screening: P ap every 3 yrs pts age 21-65 02/02/1988 Cervical Cancer: Pap Screeni ng with Modifier timing ([facility]) 02/02/1988 Cervical Cancer: hrHPV alone or with cotesting Pap for Pts 30-65yrs screening every 5yrs ([facility]) 02/02/1988 Colorectal Cancer Screening 45 -75 Yrs (or HM Modifier ) 02/02/2012 Colorectal Cancer: FLEXIBLE SIGMOIDOSCOPY Screening every 5 yrs 02/02/2012 Colorectal Cancer: Fecal Imm unochemical Test (FIT) Annually [facility] 02/02/2012 Colorectal Cancer: High-sens itivity gFOBT Screening Annually [facility] 02/02/2012 Colorectal Cancer: Stool Col oguard Screening every 3 yrs 02/02/2012 Colorectal Cancer:CT Colonography Screening every 5 yr s 02/02/2012 Breast Cancer: Screening Maris hugh age 50-74 yrs (or HM Modifier)([facility]) 2017 Pneumococcal Vaccination Scr eening: Patients 50+ yrs of age ([facility]) (1 of 1 - PCV) 2017 Zoster/Shingles Vaccine Seri es Screening: Adults aged 18+ yrs (or HM Modifiers)([facility]) (1 of 2) 2017 COVID-19 Vaccine Screening: Initial Series and Booster Status ([facility]) ( - 2023- season) 2024 Flu Vaccination: Yearly for ages 18mos through 64 years (or Modifier)([facility]) 12/11/2024 Medical Devices Not on file Insurance MEDICARE [facility] Care Teams Rubber Block Layer Relationship Specialty Start Date End Date Renate Mercado MD [address] [facility] [address] PCP - General Internal Medicine 06/05/21
== END 2024-11-24 09:33 | disposition home or self-care (01) ==
LOC: HO.HMCC 08:33
PROVIDERS: PCP Internal Medicine; Visit Provider Internal Medicine
DX: I12.9 Hypertensive chronic kidney disease with stage 1 through stage 4 chronic kidney disease, or unspecified chronic kidney disease (principal); E11.9 Type 2 diabetes mellitus without complications; N18.30 Chronic kidney disease, stage 3 unspecified; M48.061 Spinal stenosis, lumbar region without neurogenic claudication; N20.0 Calculus of kidney; I25.10 Atherosclerotic heart disease of native coronary artery without angina pectoris

== ENCOUNTER → 2024-11-24 08:32 | Outpatient (BNVA) | payer MEDICARE, MEDICAID, SELFPAY | PROVIDERS: PCP Internal Medicine; Visit Provider Internal Medicine | DX: M48.061 Spinal stenosis, lumbar region without neurogenic claudication (principal); N20.0 Calculus of kidney; I25.10 Atherosclerotic heart disease of native coronary artery without angina pectoris; I12.9 Hypertensive chronic kidney disease with stage 1 through stage 4 chronic kidney disease, or unspecified chronic kidney disease; E11.22 Type 2 diabetes mellitus with diabetic chronic kidney disease; N18.30 Chronic kidney disease, stage 3 unspecified | CPT/HCPCS: 96127; 99212 ==

== ENCOUNTER 2024-12-14 06:00 | Outpatient (RCR) | payer MEDICARE, MEDICAID, SELFPAY ==
--- NOTE | 2024-12-07 06:51 | MHC.PT.EP ---
[facility] [place] [facility] [place] Office [place] Office [address] Orion Khan [address] [phone] F: [phone] F: [phone] F: [phone] F: [phone] Physical Therapy Plan of Care Date of Evaluation: 12/07/24 Date of Surgery: n/a Diagnosis: spinal stenosis, lumbar Assessment: Patient is a 59 year old female presenting to PT with complaints of pain in her low back. Pt reports onset of pain began 30 years ago due to multiple work injuries. She presents today with impairments in pain, lumbar ROM, core strength, hip strength. 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 Pt expresses assisted goal of reducing pain, and is motivated to work towards this in PT. Clinical presentation today is most consistent with signs and sx associated with low back pain and pt will benefit from skilled PT 2 week x 4 weeks to address the following problems and impairments noted upon evaluation: pain, lumbar ROM, core strength, hip strength. These problems limit the patient with the following functional activities: bending, lifting, ADLs, household duties, ambulating, standing. The prescribed treatment plan of care is medically necessary. Co-morbidities of hepatitis C, fibromyalgia, mild silent MERCADO, DM were identified and taken into considerations of plan of care. Pt was educated on HEP, role of PT, prognosis, POC. Frequency and Duration: The patient will be seen 2 x week x 4 weeks Short Term Goals: Pt will demonstrate pain at rest < 5/10 in 2 weeks. Pt will demonstrate improved hip MMT strength by 1/3 grade in 2 weeks. Pt will demonstrate ability to perform PPT with good core control in 2 weeks. Fci Goals: Pt will demonstrate improved Anisa score by 10% in 4 weeks for improved functional mobility. Pt will demonstrate ability to complete ADLs with min to no pain in 4 weeks for return to PLOF. Pt will demonstrate ability to ambulate with min to no pain in 4 weeks for improved access to the community. Treatment Plan: Modalities to reduce pain, spasms and effusion. Manual therapy to restore motion and function. Therapeutic exercise to improve strength and flexibility. Neuromuscular re-education for posture and balance. Therapeutic activities to return to functional activities of daily living. Electronically signed by: Ronit Quesada, PT, DPT, ATC Please sign and return to therapist. Thank you for your referral.
--- NOTE | 2024-12-21 05:43 | MHC.PT.DC ---
[facility] [place] Office [place] Office [place] Office [address] Orion Khan [address] [phone] F: [phone] F: [phone] F: [phone] F: [phone] Physical Therapy Discharge Report Diagnosis: spinal stenosis, lumbar Date of Surgery: n/a Date of Evaluation: 12/07/24 Date of Discharge: 12/21/24 Treatments to Date: 2 Cancellations to Date: No Shows to Date: Discharge Status: Patient Elected to Stop Discharge Summary: Pt called to cancel all remaining appointments due to her back not feeling better after 1 visit. Pt d/c per her request. Electronically signed by: Ronit Quesada, PT, DPT, ATC Please sign and return to therapist. Thank you for your referral.
== END 2024-12-21 05:43 | disposition home or self-care (01) ==
LOC: HO.PTCHIC 06:00
PROVIDERS: PCP Internal Medicine; Visit Provider Internal Medicine
DX: M48.061 Spinal stenosis, lumbar region without neurogenic claudication (principal)
CPT/HCPCS: 97110; 97162

== ENCOUNTER 2024-12-23 13:08 | Outpatient (REF) | payer MEDICARE, MEDICAID, SELFPAY ==
--- NOTE | ~2024-12-23 | US_ITS ---
EXAMINATION: US KIDNEY BILATERAL HISTORY: N20.0 - Calculus of kidney TECHNIQUE: Real-time grayscale ultrasound imaging of the kidneys was performed and images were reviewed. COMPARISON: Comparison is made with the prior examination dated 01/07/2020. FINDINGS: Right kidney: The right kidney measures 10.3 x 5.0 x 5.2 cm. Renal parenchymal echotexture and thickness are normal. There is a 6 x 4 x 6 mm cyst at the upper pole and a 12 x 10 x 11 mm cyst at the lower pole. There is a 4 mm calculus in the midportion of the kidney and additional calculi at the upper pole measuring 3 and 6 mm in size. There is no hydronephrosis. Left Kidney: The left kidney measures 10.4 x 4.2 x 5.4 cm. Renal parenchymal echotexture and thickness are normal. There is a 16 x 16 x 20 mm upper pole cyst. There is a 3 mm calculus in the interpolar region and a 3 mm calculus at the lower pole. There is no hydronephrosis. US/US renal BI IMPRESSION: Bilateral nephrolithiasis and renal cysts as described. Electronically signed by: Jacinto Aragon MD 12/23/2024 01:54 PM EDT
--- OUTSIDE RECORDS SUMMARY | 2024-12-23 13:41 | XMS_ITS | Clinical Summary ---
Author Organization [facility] [address] [facility] Address [address] [place] [address] Phone Care Team Providers Care Gas Compressor Turbine Operator Name Role Phone Physician, Pcp Unknown Primary [...] Problem Noted Date Diagnosed Date Diabetes mellitus (CMS/[facility] V24, CMS/[facility] V28) Colon polyps 07/02/2024 Assessment & Plan [...] 03/01/20 Overview (03/04/2024): followed by dr castellon-rafa [facility] update Obesity 03/01/2006 Osteoarthrosis 03/01/2006 Overview (03/04/2024): seen by dr asaf lu O update Encounters Date Type Department Care Team Description 09/25/2024 Telephone Gastroenterology - [address] [facility] [address] [place] [phone] Janine Retana MT 09/24/2024 7:33 AM EDT Anesthesia Event [facility] Endoscopy [address] [place] [phone] Viji Jacobs MD Georgette, Nathaniel, CRNA 09/24/2024 6:54 AM EDT - 09/24/2024 11:59 PM EDT Hospital Encounter [facility] Endoscopy [address] [place] [phone] Renate Fraga MD Georgette, Nathaniel, CRNA Kriz, [...] 08/15/2004 Cholesterol Screening (Lipid Panel) 04/15/2022 03/08/2006 HIV Screening 04/15/2022 Medicare Annual Wellness Visit 04/15/2022 Social Influencers of Health Screening 04/15/2022 COVID-19 Vaccine ( season) 2024 03/18/2021, 07/30/2020, 07/02/2020 Diabetes: Blood Sugar Control Test (HGBA1C) 04/02/2024 07/05/2021 Depression Screening 05/13/2024 Diabetes: Annual Urine Albumin-Creatinine Ratio (uACR) 07/24/2024 [...] Maintenance Results * COLONOSCOPY Anesthesia - MAC; [facility] END[facility]COPY (09/24/2024 8:00 AM EDT) Anatomical Region [...] pathology results. Narrative 09/24/2024 8:01 AM EDT [facility] GI Patient Name: Yamel Ballard [...] without abnormality. Procedure Code(s): --- Professional --- 46956, Colonoscopy, flexible; with removal of tumor(s), polyp(s), or other lesion(s) by snare technique Diagnosis Code(s): --- Professional --- D12.5, Benign neoplasm of sigmoid colon R19.5, Other fecal abnormalities CPT copyright 2020 [employer]. All rights reserved. The codes documented in this report are preliminary and upon seedling puller review may be revised to meet current compliance requirements. Renate Fraga MD 09/24/2024 8:01:22 AM This report has been signed electronically.Renate Fraga MD Number of Addenda: 0 Note Initiated On: 09/24/2024 7:44 AM Scope In: Scope Out: Endoscopy Department at [facility] - [address] [place] [phone] Procedure Note Renate Fraga MD - 09/24/2024 [facility] GI Patient Name: Yamel Ballard [...] without abnormality. Procedure Code(s): --- Professional --- 13362, Colonoscopy, flexible; with removal of tumor(s), polyp(s), or other lesion(s) by snare technique Diagnosis Code(s): --- Professional --- D12.5, Benign neoplasm of sigmoid colon R19.5, Other fecal abnormalities CPT copyright 2020 [employer]. All rights reserved. The codes documented in this report are preliminary and upon seedling puller reviewmay be revised to meet current compliance requirements. Renate Fraga MD 09/24/2024 8:01:22 AM This report has been signed electronically.Renate Fraga MD Number of Addenda: 0 Note Initiated On: 09/24/2024 7:44 AM Scope In: Scope Out: Endoscopy Department at [facility] - [address] [place] [phone] IMPRESSION: - The examined portion of the [...] Result * EGD Dilation; Anesthesia - MAC; [facility] ENDOSCOPY (09/24/2024 8:00 AM EDT) Anatomical Region Laterality Modality Endoscopy 09/24/2024 7:37 AM EDT Impressions 09/24/2024 7:44 AM EDT - Normal esophagus. Biopsied. - Normal stomach. Biopsied. - Normal examined duodenum. Recommendation: - Continue present medications. - Await pathology results. Narrative 09/24/2024 7:44 AM EDT [facility] GI Patient Name: Yamel Ballard [...] was normal. Procedure Code(s): --- Professional --- 80502, Esophagogastroduodenoscopy, flexible, transoral; with biopsy, single or multiple Diagnosis Code(s): --- Professional --- R13.10, Dysphagia, unspecified K21.9, Gastro-esophageal reflux disease without esophagitis CPT copyright 2020 [employer]. All rights reserved. The codes documented in this report are preliminary and upon seedling puller review may be revised to meet current compliance requirements. Renate Fraga MD 09/24/2024 7:44:45 AM This report has been signed electronically.Renate Fraga MD Number of Addenda: 0 Note Initiated On: 09/24/2024 7:37 AM Scope In: Scope Out: Endoscopy Department at [facility] - [address] [place] [phone] Procedure Note Renate Fraga MD - 09/24/2024 [facility] GI Patient Name: Yamel Ballard Procedure Date: 09/24/2024 7:37 AM Date of : 1965 Age: 59 Gender: Female Note Status: Finalized Attending MD: Renate Fraga MD, Procedure Date No Time: 09/24/2024 Procedure: Upper GI endoscopy Indications: Dysphagia, Follow-up of gastro-esophageal reflux disease Providers: Renate Fraga MD Referring MD: Renate Mercaod MD Medicines: Propofol per Anesthesia Complications: No [...] was normal. Procedure Code(s): --- Professional --- 47404, Esophagogastroduodenoscopy, flexible, transoral; with biopsy, single or multiple Diagnosis Code(s): --- Professional --- R13.10, Dysphagia, unspecified K21.9, Gastro-esophageal reflux disease without esophagitis CPT copyright 2020 [employer]. All rights reserved. The codes documented in this report are preliminary and upon seedling puller reviewmay be revised to meet current compliance requirements. Renatemary jane Fraga MD 09/24/2024 7:44:45 AM This report has been signed electronically.Renate Fraga MD Number of Addenda: 0 Note Initiated On: 09/24/2024 7:37 AM Scope In: Scope Out: Endoscopy Department at [facility] - [address] [place] [phone] IMPRESSION: - Normal esophagus. Biopsied. - Normal [...] underlying granulation tissue. 09/25/2024 9:39 AM EDT [facility] Gross Description A. Stomach, gastric: [...] multiple levels. dvb/DG 09/25/2024 9:39 AM EDT [facility] Disclaimer Unless otherwise specified, all tissue is 10% NB formalin fixed and paraffin embedded. 09/25/2024 9:39 AM EDT [facility] Tissue Stomach structure / Unknown 09/24/2024 7:41 AM EDT 09/24/2024 10:36 AM EDT Tissue specimen (specimen) Esophageal structure / Unknown 09/24/2024 7:42 AM EDT 09/24/2024 10:36 AM EDT Tissue specimen (specimen) Sigmoid colon structure / Unknown 09/24/2024 7:59 AM EDT 09/24/2024 10:36 AM EDT Renate Fraga MD LAB PATHOLOGY ORDERABLES Final Result [facility] [address] [place] [address], * Annual BMP Blood Test (06/18/2007) [facility] Annual BMP Blood Test Abstracted [facility] Provider HEALTH MAINTENANCE Final Result * Hepatitis C Screening (06/03/2007) [facility] Hepatitis C Screening Abstracted [facility] Provider HEALTH MAINTENANCE Final Result * (ABNORMAL) Lipid panel (03/08/2006) [facility] LDL/HDL Ratio 4 0 - 4 Triglycerides [...] Insurance MEDICARE MEDICAID - [place] Care Teams Gas Compressor Turbine Operator Relationship Specialty Start Date End Date Physician, Pcp Unknown PCP - General 06/10/24
--- OUTSIDE RECORDS SUMMARY | 2024-12-23 13:41 | XMS_ITS | Clinical Summary ---
Author Organization [employer] Address [address] [place] [address] Care Team Providers Care Financial Planner Name Role Phone Renate Mercado MD Primary Care Provider [phone] Allergies Active Allergy Reactions Criticality Noted Date [...] Adults 18 yrs or above (or HM Modifier)([facility]) 1985 Hepatitis C Virus Infection in Adolescents and Adults: Screening (or Modifier) ([facility]) 1985 SDOH Screening Reminder: Maris reese for all adults ([facility]) 1985 Tobacco Smoking Cessation: i n Adults excluding Women: Behavioral and Pharmacotherapy Interventions ([facility]) 1985 DTaP/Tdap/Td Vaccines ([facility]) (1 - Tdap) 1986 Cervical Cancer Screenin 1-65 yrs of age (or Modifier) 02/02/1988 Cervical Cancer Screening: P ap every 3 yrs pts age 21-65 02/02/1988 Cervical Cancer: Pap Screeni ng with Modifier timing ([facility]) 02/02/1988 Cervical Cancer: hrHPV alone or with cotesting Pap for Pts 30-65yrs screening every 5yrs ([facility]) 02/02/1988 Colorectal Cancer Screening 45 -75 Yrs (or HM Modifier ) 02/02/2012 Colorectal Cancer: FLEXIBLE SIGMOIDOSCOPY Screening every 5 yrs 02/02/2012 Colorectal Cancer: Fecal Imm unochemical Test (FIT) Annually [facility] 02/02/2012 Colorectal Cancer: High-sens itivity gFOBT Screening Annually [facility] 02/02/2012 Colorectal Cancer: Stool Col oguard Screening every 3 yrs 02/02/2012 Colorectal Cancer:CT Colonography Screening every 5 yr s 02/02/2012 Breast Cancer: Screening Maris hugh age 50-74 yrs (or HM Modifier)([facility]) 2017 Pneumococcal Vaccination Scr eening: Patients 50+ yrs of age ([facility]) (1 of 1 - PCV) 2017 Zoster/Shingles Vaccine Seri es Screening: Adults aged 18+ yrs (or HM Modifiers)([facility]) (1 of 2) 2017 COVID-19 Vaccine Screening: Initial Series and Booster Status ([facility]) ( - 2023- season) 2024 Flu Vaccination: Yearly for ages 18mos through 64 years (or Modifier)([facility]) 12/11/2024 Medical Devices Not on file Insurance MEDICARE [facility] Care Teams Financial Planner Relationship Specialty Start Date End Date Renate Mercado MD [address] [facility] [place] [address] PCP - General Internal Medicine 06/05/21
--- OUTSIDE RECORDS SUMMARY | 2024-12-23 13:41 | XMS_ITS | Referral Summary ---
Author Organization [facility] Address [address] [place] [address] Care Team Providers Care Promotion Manager Name Role Phone Renate Mercado Primary Care Provider [phone] Allergies No known active allergies Medications levothyroxine [...] Not on file Procedures * Due to [place] Giveit100 law, this organization might not be sharing negative HIV tests. Procedure Name Priority Date/Time Associated Diagnosis Comments COMPREHENSIVE METABOLIC PANEL Routine 01/07/2023 9:57 PM EDT from Last 3 Months or Most Recently Relevant to Health Maintenance Results * Due to [place] Giveit100 law, this organization might not be sharing [...] resistant organisms ESBL 09/19/2021 09/19/2021 Insurance MEDICARE [facility] Advance Directives Documents on File Type Date Recorded Patient Officer Captain Expl anation Advance Directive 09/26/2012 12:00 AM Adva nce Care Directives Advance Directive 09/25/2012 12:00 AM douglas hong Dec Making (Adv.Dir) Care Teams Promotion Manager Relationship Specialty Start Date End Date Renate Mercado [address] [place] [address] PCP - General Internal Medicine 05/09/23
--- OUTSIDE RECORDS SUMMARY | 2024-12-23 13:41 | XMS_ITS | Encounter Summary ---
Author Organization [facility] Address [address] [place] [address] Care Team Providers Care Book Agent Name Role Phone Canelo Almanza MD Primary Care Provider [phone] Encounter Details Date Type Department Care Team ([facility] st Contact Info) Description 2019 Orders Only [facility] Urology [address] [facility] [address] [place] [address] Janine Miner NP [address] [place] [address] Social History Tobacco Use Types Packs/Day Years [...] of this encounter Procedures * Due to [place] state law, this organization might not be sharing negative HIV tests. Procedure Name Priority Date/Time Associated Diagnosis Comments KIDNEY STONE FORMATION RISK DIAGNOSTIC PROFILE, 24HR URINE Routine 2019 1:06 PM EDT Kidney stones documented in this encounter Results * Due to [place] state law, this organization might not be [...] analytical performance characteristics have been determined by [employer] Fan Vásquez. It has not been cleared or approved by the US Food and Drug Administration. This assay has been validated pursuant to the CLIA regulations and is used for clinical purposes. 2019 1:06 PM EDT 2019 4:08 PM EDT Narrative Resulting Agency Comment [id number] us Janine Miner [facility] Final Re sult [facility] [address] [place] [address] documented in this encounter Visit Diagnoses Diagnosis Kidney stones Calculus of kidney documented in this encounter Care Teams Book Agent Relationship Specialty Start Date End Date Canelo Almanza MD [address] [address] PCP - General Internal Medicine 10/29/18 documented as of this encounter
--- OUTSIDE RECORDS SUMMARY | 2024-12-23 13:41 | XMS_ITS | Patient Health Record ---
Author Organization [facility] Address [address] [place] [address] Care Team Providers Care Vegetable Buncher Name Role Phone Renate Mercado MD Primary [...] Problem Status W/U Status Risk Notes Problem [id number] Change in bowel habits (R19.4) Active confirmed Plan Of Treatment Future Test Test Name Order Date COLONOSCOPY 04/27/2021 Insurance Providers Payer Name Payer Address Payer Phone Subscriber Number Group Number Insured Name Patient Relationship to Insured Coverage Start Date Coverage End Date MEDICARE OF [place] [address] [place] [address] [id number] ELIO ANIBAL Self - patient is the insured MEDICAID OF [facility] [address] [place] [address] [id number] ELIO, ANIBAL Self - patient is the insured Medical (General) History Medical History History ICD Code type II diabetes hypertension Coronary artery disease/ND, (mild heart attack per patient) 2014 Nephrolithiasis Chronic kidney disease stage III Chronic hepatitis C, SVR following Harvo ni therapy Colonoscopy 04/09/17, hyperplastic polyp , prior history of tubular adenomas. Surgical History Surgery Date(Month/Year) gallbladder 2008 2 surgerys kidney
--- OUTSIDE RECORDS SUMMARY | 2024-12-23 13:41 | XMS_ITS | Encounter Summary ---
Author Organization [facility] Address [address] [facility] [address] [place] [phone] Phone Care Team Providers Care Boiler Service Technician Name Role Phone Renate Mercado MD Primary Care Provider Reason for Visit * Reason Comments Medication Refill Encounter Details Date Type Department Care Team (Late st Contact Info) Description 08/31/2021 Refill [facility] Urology [address] [facility] [place] [address] Josefina Rubio MD [address] [facility] [address] [place] [address] [email or web address] Medication Refill Social History Tobacco Use Types Packs/Day Years Used Date Smoking Tobacco: Never Smokeless Tobacco: Never Alcohol Use Standard Drinks/Week Comments Never 0 (1 standard drink = 0.6 oz pur e alcohol) Comments Unknown Sex and Gender Information Value Date Recorded Sex Assigned at Female 07/25/2020 8:19 AM EDT Legal Sex Female 8:11 AM EDT Gender Identity Female 07/25/2020 8:19 AM EDT Sexual Orientation Straight 07/25/2020 8: 19 AM EDT documented as of this encounter Plan of Treatment Upcoming Encounters Date Type Department Care Team (Late Contact Info) Description 03/16/2025 8:40 AM EST Office Visit [facility] Endocrinology [address] [facility] [place] [phone] Donna Uriostegui MD [address] [place] [phone] [email or web address] documented as of this encounter Visit Diagnoses Not on filedocumented in this encounter Care Teams Boiler Service Technician Relationship Specialty Start Date End Date Renate Mercado MD [address] [facility] [place] [address] PCP - General Internal Medicine 07/25/20 documented as of this encounter Additional Source Comments The information contained in this document represents components of the legal health record. It is not the complete legal health record.[facility]
--- OUTSIDE RECORDS SUMMARY | 2024-12-23 13:41 | XMS_ITS | Clinical Summary ---
Author Organization [facility] 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 Phone Renate Mercado MD Primary Care Provider [phone] Allergies Active Allergy Reactions Criticality Noted Date Comments Aspirin 09/23/2018 Liraglutide Other (see comments),Vomiting High 06/30/2017 Other reaction(s): Unknown Sulfa Antibiotics 06/30/2017 Sulfamethoxazole-Trimet hopri 10/14/2017 Medications atorvastatin (LIPITOR) 40 MG tablet Take 40 mg by mouth 1 (one) time each day Active insulin glargine (LANTUS) 100 UNIT/ML injection Inject 32 Units under the skin every night Active insulin lispro (HumaLOG) 100 UNIT/ML injection Inject under the skin 3 (three) times a day before meals Active aspirin (ST ISAI) 81 MG EC tablet Take 81 mg by mouth 1 (one) time each day Active Cholecalciferol (Vitamin D) 50 MCG (1999 UT) capsule Take by mouth Active losartan (COZAAR) 100 MG tablet Take 100 mg by mouth 1 (one) time each day Active metoprolol tartrate (LOPRESSOR) 50 MG tablet Take 50 mg by mouth 2 (two) times a day Active ferrous sulfate 325 (65 Fe) MG tablet Take 325 mg by mouth 1 (one) time each day with breakfast Active cyanocobalamin (VITAMIN B-12) 1000 MCG tablet Take 1,000 mcg by mouth 1 (one) time each day Active felodipine (PLENDIL) 5 MG 24 hr tablet Take 5 mg by mouth daily 0 Active B-D UF III MINI PEN NEEDLES 31G X 5 MM misc USE TO INJECT 4 TIMES A DAY 0 Active metFORMIN XR (GLUCOPHATE-XR) 500 MG 24 hr tablet Take 1,000 mg by mouth twice a day 0 Active Yuvafem 10 MCG tablet INSERT 1 TABLET VAGINALLY TWICE WEEKLY 1 Active levothyroxine (SYNTHROID, LEVOTHROID) 50 MCG tablet Take 50 mcg by mouth 1 (one) time each day 2 Active dicyclomine (BENTYL) 10 MG capsule TAKE 1 CAPSULE BY MOUTH THREE TIMES A DAY NEEDED 4 Active allopurinol (ZYLOPRIM) 100 MG tablet TAKE 2 TABLETS BY MOUTH 1 TIME EACH DAY. 180 tablet 3 5 Active Active Problems Problem Noted Date Diagnosed Date Hyperuricemia 06/16/2023 Morbid obesity 02/11/2023 02/11/2023 Obese class II 02/11/2023 02/11/2023 Microalbuminuria 12/14/2019 Hypothyroidism 11/10/2012 02/11/2023 Overview (02/11/2023): Nephrolithiasis 09/03/2012 Hypertension 06/20/2009 Resolved Problems Problem Noted Date Diagnosed Date Resolved Date Well female adult 02/11/2023 02/11/2023 02/11/2023 Chronic kidney disease, stage 3 (moderate) 12/14/2019 02/11/2023 Diabetes mellitus 11/10/2012 02/11/2023 Overview (12/14/2019): , Social History Tobacco Use Types Packs/Day Years Used Date Smoking Tobacco: Unknown Comments Unknown Sex and Gender Information Value Date Recorded Sex Assigned at Not on file Legal Sex Female 2:50 PM EDT Gender Identity Not on file Sexual Orientation Not on file Last Filed Vital Signs Vital Sign Reading Time Taken Comments Blood Pressure 132/88 01/15/2024 8:57 AM EDT Pulse 74 01/15/2024 8:57 AM EDT Temperature - - Respiratory Rate - - Oxygen Saturation 99% 06/17/2023 7:37 AM EST Inhaled Oxygen Concentration - - Weight 86.2 kg (190 lb) 01/15/2024 8:48 AM EDT Height 160 cm (5' 3 ) 06/17/2023 7:37 AM EST Body Mass Index 33.66 06/17/2023 7:37 AM EST Plan of Treatment Upcoming Encounters Date Type Department Care Team (Late st Contact Info) Description 01/14/2025 Orders Only [facility] [address] [phone] Fabio Mai MD [address] [phone] Hyperuricemia; Microalbuminuria; Hypertension; Nephrolithiasis 01/14/2025 8:00 AM EDT Office Visit [facility] [address] [phone] Fabio Mai MD [address] [phone] Health Maintenance Due Date Last Done Comments Breast Cancer Screening 1965 Hepatitis B Vaccine (1 of 3 - 19+ 3-dose series) 02/01 Pneumococcal Vaccine: 50+ Years (1 of 2 - PCV) 986 Colorectal Cancer Screening: Annual FOBT 02/02/2016 Colorectal Cancer Screening: Colonoscopy 02/02/2016 Colorectal Cancer Screening: Sigmoidoscopy 02/02/2016 Diabetes: Hemoglobin A1C 02/12/2023 07/05/2021 Diabetes: Ophthalmology Exam 02/12/2023 Diabetes: Pedal Pulse Checked 02/12/2023 Diabetes: Sensory Foot Exam 02/12/2023 Diabetes: Visual Foot Exam 02/12/2023 Influenza Vaccine (#1) 2025 Procedures Procedure Name Priority Date/Time Associated Diagnosis Comments HEMOGLOBIN A1C Routine 07/05/2021 10:30 AM EST Type 2 diabetes mellitus with other specified complication (HCC) from Last 3 Months or Most Recently Relevant to Health Maintenance Results * (ABNORMAL) Hemoglobin A1c (07/05/2021 10:30 AM EST) Hemoglobin A1C 6.6(H) (4.0-5.6) % [facility] Comment: MONITORING: In known diabetic patients, hemoglobin A1c targets should be discussed with health care provider. DIAGNOSTIC USE: The [place] Diabetes Association (ADA) and the World Health Organization (WHO) recommend the use of HbA1c to diagnose diabetes using a threshold of 6.5%. Patients who have an HbA1c between 5.7% and 6.4% are considered at increased risk for developing diabetes in the future. CAUTION: Falsely low HbA1c results may be observed in patients with hemolytic anemia, homozygous forms of abnormal hemoglobin (e.g. SS, CC, SC), , recent blood loss or hemoglobin F greater than 7%. Fructosamine may be used as an alternate test in these cases. REFERENCE: ADA: Standards of Medical Care in Diabetes 2020, The Journal of Clinical and Applied Research and Education Volume 43, Supplement 1 Testing performed or reported by [facility], a Service of [facility], [address] [place] [address] Hector Millard MD, Concreting Supervisor [facility]# [id number] Blood specimen (specimen) Venous blood / Unknown 07/05/2021 10:30 AM EST 07/05/2021 10:31 AM EST Greyson Wu MD LAB BLOOD ORDERABLES Final Result Performing Organization Address City/State/[facility] Co de Phone Number [facility] from Last 3 Months or Most Recently Relevant to Health Maintenance Insurance Medicare Medicaid [place] [address] [place], [place] Medicare Member Subscriber Plan / Payer (Ef fective 2008-Present) Name:Yamel Canela Member ID:[id number] Relation to Subscriber:Self Name:Yamel Canela Subscriber ID:[id number] Payer ID:Not on file Group ID:Not on file Type:Not on file Address: [place] [id number] Medicaid [place] [address] [place], [place] Care Teams 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
== END 2024-12-23 13:09 | disposition home or self-care (01) ==
LOC: HO.HMGCX 13:08
PROVIDERS: PCP Internal Medicine; Visit Provider Internal Medicine
DX: N20.0 Calculus of kidney (principal)
CPT/HCPCS: 76775

== ENCOUNTER → 2024-12-23 13:11 | Outpatient (BNV) | payer MEDICARE, MEDICAID, SELFPAY | PROVIDERS: PCP Internal Medicine; Visit Provider Radiology Diagnostic Radiology | DX: N20.0 Calculus of kidney (principal); N28.1 Cyst of kidney, acquired | CPT/HCPCS: 76775 ==